=== PATIENT | female | born 1960 | race Caucasian/White ===

== ENCOUNTER 2022-05-03 09:53 | Outpatient (CLI) | payer MEDICARE, SELFPAY ==
--- NOTE | 2022-05-03 10:31 | USCV_ITS ---
Riri Espino Age: 62 Gender: F : 1960 Exam Date: 05/03/2022 10:57 Ordering Phys: Jo Oviedo Technologist: Amari Whitt [place] [facility] [place]: PAD Risk Factors: Previous Vascular Surgery: RIGHT LEFT BP: 133.0 / 80.00 BP: 148.0/ 90.00 0 0 Waveform Velocity (cm/s) Velocity (cm/s) Waveform Triphasic 139.3 Iliac Prox 90.2 Triphasic Triphasic 142.2 Iliac Mid 103.0 Triphasic Triphasic 125.1 Iliac Distal 144.5 Triphasic Triphasic 158.8 LIBRARY SERVICES COORDINATOR 97.9 Triphasic Triphasic 69.2 SFA Prox 80.3 Triphasic Monophasic 76.9 SFA Mid 365.5 Biphasic Monophasic SFA Dist Triphasic 44.7 86.3 Monophasic 25.6 POP 54.6 Biphasic Monophasic 16.8 AUTOMATIC WASHER MECHANIC 24.0 Biphasic Monophasic 11.2 DPA 23.0 Biphasic 0.7 DOYLE 0.7 FINDINGS Resting DOYLE 0.7 bilaterally. Moderate diffuse plaques were noted in the iliac and femoral arteries bilaterally. Markedly elevated velocity at the level of the mid SFA on the left side, with abnormal Doppler waveform CONCLUSIONS 1. Abnormal ABIs of 0.7 bilaterally, suggesting moderate peripheral artery disease. 2. Elevated Doppler velocity and waveform at the mid SFA on the left side, suggesting greater than 50% stenosis No similar previous studies are available for comparison Dr Geovanna Johnson MD [facility] (Electronically Signed) Final Date: 05 May 2022 13:38 S
== END 2022-05-03 09:54 | disposition home or self-care (01) ==
PROVIDERS: Visit Provider Family Medicine
DX: I70.202 Unspecified atherosclerosis of native arteries of extremities, left leg (principal)
CPT/HCPCS: 93925

== ENCOUNTER → 2023-09-10 14:30 | Outpatient (BNVA) | payer MEDICARE, MEDICAID, SELFPAY | PROVIDERS: PCP Nurse Practitioner Family; Visit Provider Specialist | DX: G56.03 Carpal tunnel syndrome, bilateral upper limbs (principal); G56.21 Lesion of ulnar nerve, right upper limb | CPT/HCPCS: 95910; 95911 ==

== ENCOUNTER → 2023-11-05 08:59 | Outpatient (BNVA) | payer MEDICARE, MEDICAID, SELFPAY | PROVIDERS: PCP Nurse Practitioner Family; Visit Provider Student in an Organized Health Care Education/Training Program | DX: G56.03 Carpal tunnel syndrome, bilateral upper limbs (principal); G56.21 Lesion of ulnar nerve, right upper limb | CPT/HCPCS: 73130; 99204 ==

== ENCOUNTER 2023-12-05 10:59 | Day surgery (SDC) | payer MEDICARE, MEDICAID, SELFPAY ==
[2023-12-05] VITALS (7 sets, daily range): BP systolic 97–155; BP diastolic 59–91; PULSE 57–73; RESP 16; TEMP 36.1–36.2; O2SAT 90–94
[2023-12-05] MEDS: sodium chloride 0.9% 1,000 ML 30 ML IV (11:46)
--- NOTE | 2023-12-05 11:46 | P.ANESASSM_ITS ---
Pre-Anesthetic Assessment Height/Weight: Height 5 ft Weight 175 lb Temp Pulse Resp BP Pulse Ox O2 Del Method 97 F L 71 16 155/84 94 Room Air 12/05/23 11:27 12/05/23 11:27 12/05/23 11:27 12/05/23 11:27 12/05/23 11:27 12/05/23 11:27 Preop Diagnosis: Carpal tunnel Operation Date: 12/05/23 13:00 Proposed Procedures p Carpal Tunnel Release(Right) - Kamaljit Magoffin, DO s Cubital Tunnel Release(Right) - Kamaljit Avel, DO s Ulnar Nerve Transposition(Right) - Kamaljit Magoffin, DO Was Beta Aman taken within 24 hours: N/A Was Clonidine taken within 24 hours: N/A Last intake: Intake Last Liquid Date 12/04/23 Last Liquid Time 21:00 Last Solid Date 12/04/23 Last Solid Time 19:00 Social Tobacco and No alcohol Exam alert, oriented x 3 and regular rate & rhythm decreased breath sounds bilaterally Airway Submandibular: within normal limits Cervical ROM: within normal limits Mallampati: Class III Dentition: other (few missing teeth) Anesthetic Plan ASA status: 3 Anesthesia: MAC and Regional (specify below) Other: No prior issues with anesthesia NPO since yesterday History of hypertension on metoprolol. BP this a.m. 155/84 Holter monitor 05/2023 showing sinus rhythm COPD, no inhalers Patient reportedly has claudication symptoms in lower extremities secondary to vascular stenosis. Needing vascular surgery in the future but has not had the procedures done yet Plan for MAC anesthesia with preop nerve block Medications/Allergies Home Medications Medication Instructions Recorded Confirmed Last Taken Type calcium 167 mg-vitamin D3 1.67 1 cap PO DAILY 11/05/23 12/04/23 12/04/23 History mcg-magnesium 83 mg capsule celecoxib 100 mg capsule (Celebrex) 100 mg PO BID 11/05/23 12/04/23 11/27/23 History cilostazol 100 mg tablet 100 mg PO BID 11/05/23 12/05/23 12/05/23 History metoprolol tartrate 50 mg tablet 50 mg PO DAILY 11/05/23 12/05/23 12/05/23 Histo ry simvastatin 10 mg tablet 10 mg PO DAILY 11/05/23 12/04/23 12/04/23 History Allergies Allergy/AdvReac Type Severity Reaction Status Date / Time metformin Allergy Intermediate Unknown Verified 11/05/23 09:03 [facility] Anesthesia Social History Smoking and tobacco/nicotine status: current every day tobacco/nicotine user Data Anesthesia Cardiac Studies: Cardiac Event Monitor 05/03/23
[2023-12-05] MEDS: acetaminophen 1,000 MG/100 ML PIGGYBACK 400 MG IV (11:50)
[2023-12-05] MEDS: ketorolac 30 mg/mL INJ IVP (11:51)
[2023-12-05 11:55] LABS: Glucose Point of Care 90 mg/dL (70-110)
--- NOTE | 2023-12-05 12:16 | PC.NURSE ---
pt placed on oxygen and heart monitors plus 2L nasal cannula in preparation for a superclavicular block for post surgery pain control. Time out was performed block was then performed using 30cc of 0.5% ropivicain. pt tolerated procedure well
--- NOTE | 2023-12-05 12:18 | ANES.PROC ---
Anesthesia Procedures Procedure/Date: 12/05/23 Nerve Block ^: Nerve Block 1: Main Anesthesia: other (100mcg fentanyl and 2mg versed) Time Out Performed: Yes Consent: requested by attending/covering physician and from patient Nerve block location: supraclavicular Anesthesia monitors applied: pulse oximetry, EKG, BP cuff and oxygen Nerve block position: supine Anesthetic Used: ropivicaine 0.5% Amount of anesthesia used (mL): 30 Ultrasound used to: recognize landmarks Interscalene/Femoral BLK: 4 stimuplex 21 g needle used for position and inplane approach and visualize local anesthetic spread Injection: neg aspiration of heme Patient Tolerated Procedure: well Complications: none Additional Comments: 4mg decadron added to block
--- NOTE | 2023-12-05 13:06 | W.PM.OPSUD ---
Surgery/Procedure H&P Update DATE OF PROCEDURE: December 05, 2023 DATE H&P PERFORMED: 11/05/23 H&P UPDATE INFORMATION: I have reviewed H&P completed within last 30 days, I have examined patient prior to procedure and No changes to prior documentation PREOP DIAGNOSIS: right carpal tunnel syndrome, right cubital tunnel syndrome PRIMARY INDICATION FOR PROCEDURE: right carpal tunnel syndrome, right cubital tunnel syndrome PLANNED PROCEDURE: Operation Date: 12/05/23 13:00 Proposed Procedures p Carpal Tunnel Release(Right) - DO aline Lin Cubital Tunnel Release(Right) - DO aline Lin Ulnar Nerve Transposition(Right) - Kamaljit Vallecillo DO
[2023-12-05] MEDS: ceFAZolin 2,000 MG in sodium chloride 0.9% (plus) 50 ML 100 MG IV (13:13)
--- NOTE | 2023-12-05 14:08 | P.BOP_ITS ---
Date of Procedure: 12/05/2023 Surgeon: Kamaljit Valelcillo DO Joint Sealer(s): None Procedure(s) performed: Right carpal tunnel release Right cubital tunnel release (ulnar nerve decompression at the elbow) Findings of the procedure(s): Patient was found to have right carpal tunnel syndrome right cubital tunnel syndrome underwent procedure as planned without issues or complications Estimated blood loss: 5 mL Specimen(s) removed: None Post-operative diagnosis: Right carpal tunnel syndrome, right cubital tunnel syndrome
--- NOTE | 2023-12-05 14:09 | P.OP_ITS ---
Operative Report Date of procedure: December 05, 2023 Surgeon: Kamaljit Vallecillo DO Procedure: Preoperative diagnosis: Right carpal tunnel syndrome, right cubital tunnel syndrome Postop Diagnosis: Same Procedure done: Right carpal tunnel release Right?cubital tunnel tunnel release (ulnar nerve decompression at elbow) Surgeon: Kamaljit Vallecillo DO Estimated blood loss: 5 mL Tourniquet? 13 minutes IV fluids: 1000 mL Complications: None Findings: See operative report narrative Condition: stable Disposition: same day Brief History: Patient's been seen and worked up in the outpatient setting and findings consistent with preoperative diagnosis.? Patient has right carpal tunnel syndrome as well as right?cubital tunnel syndrome which has been worked up in the outpatient setting has physical exam findings consistent with this as well as confirmatory nerve conduction/EMG nerve conduction study consistent with diagnosis.? Patient's failed conservative treatment.? As result through shared decision making agreed to proceed with? right carpal tunnel and right?cubital tunnel release we talked about treatment options as far as nonoperative and operative intervention.? Understands risk benefits complication alternatives surgical nonsurgical treatment options.? Understanding pt risks pt agrees to proceed with surgical intervention. Understanding these risks pt agrees to proceed with surgery.? Consent obtained. Procedure: Patient seen evaluate in the preoperative holding area.? Consent was reviewed and signed with patient.? Correct extremity marked.? Patient seen evaluated by anesthesia department once cleared for surgery was then taken back to the operative suite placed in supine position all bony prominences well-padded patient properly secured to bed.? right upper extremity placed onto armboard.? Nonsterile tourniquet applied right upper arm.? Patient then underwent anesthesia per the anesthesia department.? Patient's right upper extremity was then prepped and draped in standard orthopedic fashion.? Final timeout performed.? Patient received appropriate preoperative antibiotics. Esmarch was used exsanguinate the right upper extremity.? Tourniquet was insufflated to 250 mmHg. I started with the carpal tunnel release first.? I made a standard open carpal tunnel release starting with the distal most extent in the palm at the Hoff's cardinal line and the incision line was made in line with the fourth ray and ended just distal to the wrist crease.? Sharp scalpel incision was made through skin and subcutaneous tissue I then utilizing self retainer then began to diss ect with dissection scissors split longitudinally the palmar fascia.? Next I then utilizing my medical record assistant Moisésdaoneida retractors subsequently utilizing scalpel feathered through the palmaris brevis as well as through the transverse carpal ligament distally.? Once I encountered the floor of the transverse carpal ligament and entered into the carpal tunnel I then switched to dissection scissors.? Carefully released the distal extent of the transverse carpal ligament to the palmar fat.? Care was to protect the recurrent branch and not injured this during this part of the case.? Next I then placed a Hemphill underneath the transverse carpal ligament proximally to protect the nerve in the carpal tunnel contents.? And then I subsequently under loupe magnification utilize my dissection scissors to release the transverse carpal ligament into the antebrachial fascia under direct visualization with care to keep my scissors with a curved ulnarly away from the palmar cutaneous branch.? The transverse carpal was then completely decompressed proximally and a Hemphill was then placed both distally and proximally throughout the carpal tunnel and had complete decompression of the nerve.? The nerve did appear to have hourglass shape as it went through the carpal tunnel.? With significant irritation noted around the nerve.? No masses were noted within the contents of the carpal tunnel.? This completed the carpal tunnel release and then I subsequently irrigated the wound bed and placed a wet Ray-Rob into the incision for later closure. Next marked out the landmarks of the right elbow of the medial epicondyle and olecranon and made a curvilinear incision following the course of the ulnar nerve at the medial aspect of the elbow.? Sharp scalpel incision was made through skin and subcutaneous tissue.? Next I switched to Littler dissection scissors and spread in plane of the medial antebrachial cutaneous nerve branching which was protected throughout this part of the dissection.? Then I directly came down over the fascia and identified the 2 heads of the FCU fascia and split this right in the middle and subsequently identified my ulnar nerve distally.? This was then completely released distally under direct visualization and loupe magnification.? Once the nerve was then identified I then subsequently tracked this proximally and released this through Tanner's ligament as well as complete decompression of the nerve proximally all the way past the intermuscular septum.? The nerve was completely released and decompressed both proximally and distally.? Ulnar nerve neurolysis performed and completed both proximally and distally with dissection scissors.? I then took the elbow through range of motion and there was no instability or subluxating of the ulnar nerve.? This completed?cubital tunnel release.? ?Next the wound bed was thoroughly irrigated.? Tourniquet was deflated.? Hemostasis was satisfactory at the?cubital tunnel release surgery site. I then inspected the carpal tunnel incision and this was found to have satisfactory hemostasis and all this was maintained through bipolar electrocautery.? At this point time I sequentially closed?cubital tunnel site with 3-0 Vicryl suture in a running horizontal mattress nylon stitch.? ? The carpal tunnel release surgery was then closed in standard interrupted mattress fashion.? Dressing was Xeroform 4 x 4's ABD Curlex soft roll and an Nick wrap has a bulky soft dressing. Patient was then awakened from anesthesia and taken to PACU in stable condition. Disposition: Patient taken to PACU in stable condition recovering well.? Patient will receive appropriate discharge instructions as well as pain medication postoperatively.? We will follow-up with me in the office in 2 weeks.? Patient understands agrees with current plan.? All questions answered.? He understands if any questions or concerns and contact the office for follow-up appointment.
--- NOTE | 2023-12-05 15:10 | ANE.PACU2 ---
Inpatient post-anesthesia follow up: Airway intact: Yes Vital signs: Temperature 97.1 F Pulse Rate 57 Respiratory Rate 16 Blood Pressure 149/91 Pulse Oximetry 94 Oxygen Delivery Me thod Room Air Oxygen Flow Rate Fraction of Inspir ed Oxygen Hydration adequate: Yes Nausea and vomiting: No Pain level: 1 Mental status: Baseline
== END 2023-12-05 15:10 | disposition home or self-care (01) ==
PROVIDERS: PCP Nurse Practitioner Family; Visit Provider Student in an Organized Health Care Education/Training Program
PROC: (CPT 64721; principal; 2023-12-05 12:50)
PROC: (CPT 64718; 2023-12-05 12:50)
DX: G56.01 Carpal tunnel syndrome, right upper limb (principal); G56.21 Lesion of ulnar nerve, right upper limb; F17.200 Nicotine dependence, unspecified, uncomplicated
CPT/HCPCS: 64718; 64721; 36416; 82962; J0131; J0690; J1885; J2704; J7030

== ENCOUNTER → 2023-12-20 08:53 | Outpatient (BNVA) | payer MEDICARE, MEDICAID, SELFPAY | PROVIDERS: PCP Nurse Practitioner Family; Visit Provider Physician Assistant | DX: Z98.890 Other specified postprocedural states (principal) | CPT/HCPCS: 99024 ==

== ENCOUNTER → 2024-03-12 08:57 | Outpatient (BNVA) | payer MEDICAID, MEDICARE, SELFPAY | PROVIDERS: PCP Nurse Practitioner Family; Visit Provider Physician Assistant | DX: Z98.890 Other specified postprocedural states (principal) | CPT/HCPCS: 99024 ==

== ENCOUNTER → 2024-05-08 08:51 | Outpatient (BNVA) | payer MEDICARE, MEDICAID, SELFPAY | PROVIDERS: PCP Nurse Practitioner Family; Referring Provider Nurse Practitioner Family; Visit Provider Internal Medicine | DX: E11.9 Type 2 diabetes mellitus without complications (principal); E21.0 Primary hyperparathyroidism | CPT/HCPCS: 99204 ==

== ENCOUNTER 2024-06-23 11:41 | Outpatient (CLI) | payer OTHER, MEDICAID, SELFPAY ==
--- NOTE | 2024-06-23 11:54 | XR_ITS ---
WS: [email or web address] Exam: XR lumbar spine 2-3V* [id number] Date/Time of Exam: 06/23/2024 11:59 AM Reason For Exam: FOLLICULAR CYST OF THE SKIN No acute fracture. Degenerative vacuum disc at L5-S1. Mild spondylosis. Facet arthropathy at L4-5 and L5-S1. XR/XR lumbar spine 2-3V* [id number] IMPRESSION: 1. No fracture or malalignment. 2. Degenerative changes most marked at the L5-S1 level.
== END 2024-06-23 11:42 | disposition home or self-care (01) ==
PROVIDERS: PCP Nurse Practitioner Family; Visit Provider Nurse Practitioner Adult Health
DX: L72.9 Follicular cyst of the skin and subcutaneous tissue, unspecified (principal); M51.379 Other intervertebral disc degeneration, lumbosacral region without mention of lumbar back pain or lower extremity pain; M47.896 Other spondylosis, lumbar region; M47.897 Other spondylosis, lumbosacral region
CPT/HCPCS: 72100

== ENCOUNTER 2024-10-29 08:25 | Outpatient (CLI) | payer OTHER, MEDICAID, SELFPAY ==
--- NOTE | 2024-10-29 08:32 | XR_ITS ---
WS: [email or web address] Exam: XR KUB [id number] Date/Time of Exam: 10/29/2024 8:32 AM Reason For Exam: see below No bowel obstruction or free air. No sign of organ enlargement. Nonacute bowel gas pattern. Moderate amount of stool in the rectosigmoid and LEFT colon. Degenerative changes in the lumbar spine and hips. XR/XR KUB [id number] IMPRESSION: 1. No acute process identified. 2. Moderate amount of retained stool in the rectosigmoid and LEFT colon.
[2024-10-29 09:28] LABS: Alanine Aminotransferase 14 U/L (0-33); Albumin Level 4.0 g/dL (3.5-5.2); Alkaline Phosphatase 99 U/L (35-105); Anion Gap 15.2 (5-19); Aspartate Amino Transferase 16 U/L (0-32); Blood Urea Nitrogen 13 mg/dL (8-23); Calcium 10.1 mg/dL (8.5-10.5); Carbon Dioxide 27 mmol/L (22-29); Chloride 102 mmol/L (98-107); Globulin 3.1 g/dL (1.3-4.6); Glucose 116 mg/dL (65-115); Osmolality Calculated 291 mOsm/kg (285-295); Potassium 4.2 mmol/L (3.5-5.1); Sodium 140 mmol/L (136-145); Total Protein 7.1 g/dL (6.6-8.7)
[2024-10-29 10:26] LABS: Calcium 10.1 mg/dL (8.5-10.5)
== END 2024-10-29 08:26 | disposition home or self-care (01) ==
LOC: RAD 08:28
PROVIDERS: PCP Nurse Practitioner Family; Visit Provider Internal Medicine
DX: E21.0 Primary hyperparathyroidism (principal); E11.9 Type 2 diabetes mellitus without complications
CPT/HCPCS: 36415; 74018; 80053; 82306; 82310; 83970

== ENCOUNTER 2024-11-03 08:53 | Outpatient (CLI) | payer OTHER, MEDICAID, SELFPAY ==
[2024-11-03 12:54] LABS: Creatinine 24 Hour Urine 746.8 mg/dL (601-1689); Total Volume Urine 2575 ml
[2024-11-03 13:32] LABS: Calcium 24 Hour Urine 183 mg/24hr (100-300); Total Volume Urine 2575 ml; Urine Calcium Result 7.1 mg/dL
== END 2024-11-03 08:54 | disposition home or self-care (01) ==
PROVIDERS: PCP Nurse Practitioner Family; Visit Provider Internal Medicine
DX: E11.9 Type 2 diabetes mellitus without complications (principal); E21.0 Primary hyperparathyroidism
CPT/HCPCS: 82340; 82570

== ENCOUNTER → 2024-11-06 07:58 | Outpatient (BNVA) | payer OTHER, MEDICAID, SELFPAY | PROVIDERS: PCP Nurse Practitioner Family; Referring Provider Nurse Practitioner Family; Visit Provider Internal Medicine | DX: E21.0 Primary hyperparathyroidism (principal); E55.9 Vitamin D deficiency, unspecified; E83.52 Hypercalcemia | CPT/HCPCS: 99214 ==

== ENCOUNTER 2025-01-09 22:38 | Inpatient (IN) | payer MEDICARE, MEDICAID, SELFPAY ==
[2025-01-09 22:40] VITALS: BP 121/67; PULSE 70; RESP 17; TEMP 36.7; O2SAT 92; BMI 34.2
--- OUTSIDE RECORDS SUMMARY | 2025-01-09 22:43 | XMS_ITS | Clinical Summary ---
Author Organization [facility] Address [address] [place] [address] Phone Care Team Providers Care Tmd Teacher Name Role Phone Unavailable Primary Care Provider Unavailabl e Encounters Date Type Department Care Team Description 12/23/2024 External Device Data [facility] ABSTRACTION Provider, Abstract 12/22/2024 External Device Data [facility] ABSTRACTION Provider, Abstract 11/17/2024 External Device Data [facility] ABSTRACTION Provider, Abstract from Last 3 Months Social History Tobacco Use Types Packs/Day Years Used Date Smoking Tobacco: Never Assessed Comments Unknown Sex and Gender Information Value Date Recorded Sex Assigned at Not on file Legal Sex Female 3:58 PM CDT Gender Identity Not on file Sexual Orientation Not on file Plan of Treatment Health Maintenance Due Date Last Done Comments DTAP/TDAP/TD VACCINES (1 - Tdap) 1978 BREAST CANCER SCREENING 1999 COLORECTAL SCREENING 2004 Colorectal Cancer Screening 2004 FIT-DNA Q 3 years 2004 FIT/FOBT Q 1 year 2004 Flex Sig/CT Colonography Q 5 years 2004 PNEUMOCOCCAL VACCINE 50+ YEARS (1 of 1 - PCV) 04/12/19 10 ZOSTER VACCINE (1 of 2) 2009 OSTEOPOROSIS SCREENING 2024 INFLUENZA VACCINE (#1) 2024 RSV VACCINE (60+ or ) (1 - 1-dose 75+ series) 2034 Insurance [facility] DUAL COMPLETE HMO DSNP [facility] [id number]
--- NOTE | 2025-01-09 22:47 | ECG_ITS ---
[facility] 2025[facility]09 Pat Name: Riri Espino Department: Room: Gender: Female Player Services Representative: : 1960 Requested By: Cabrera Henriquez Order Number: [id number] Stevens MD: Geovanna Johnson M.D. Measurements Intervals [place] Rate: 69 P: 77 MA: 200 QRS: 63 QRSD: 85 T: 55 QT: 398 QTc: 427 Interpretive Statements SINUS RHYTHM No previous ECG available for comparison Electronically Signed On 01-10-2025 20:15:32 HELICOPTER OFFICER by Geovanna Johnson M.D. [email or web address]
--- NOTE | 2025-01-09 22:48 | XRR_ITS ---
PROCEDURE INFORMATION: Exam: XR Chest Exam date and time: 01/10/2025 1:39 AM Age: 64 years old Clinical indication: Chest pressure; C/O chest pain; Additional info: Cp TECHNIQUE: Imaging protocol: Radiologic exam of the chest. Views: 1 view. COMPARISON: CR XR KUB [id number] 10/29/2024 8:37 AM FINDINGS: Lungs: Unremarkable. No consolidation. Pleural spaces: Unremarkable. No pleural effusion. No pneumothorax. Heart/Mediastinum: Unremarkable. No cardiomegaly. Bones/joints: Unremarkable. XR/XR chest 1V portable [id number] IMPRESSION: No acute findings.
[2025-01-09 22:52] VITALS: BP 124/60; PULSE 68; O2SAT 94
[2025-01-09 23:22] LABS: Hematocrit 43.5 % (36-47); Hemoglobin 14.20 g/dL (11.27-16.99); Mean Corpuscular HGB Conc 32.6 g/dL (30-55); Mean Corpuscular Hemoglobin 31.2 pg (27-33); Mean Corpuscular Volume 95.6 fl (85-98); Nucleated Red Blood Cells % 0 %; Platelet Count 265 10^3/cmm (157-399); Red Blood Count 4.55 10^6/uL (3.85-5.65); White Blood Count 7.87 10^3/uL (3.29-11.43)
[2025-01-09 23:42] LABS: Troponin(5th) Baseline 21 ng/L (0-10)
[2025-01-09 23:43] LABS: Alanine Aminotransferase 15 U/L (0-33); Albumin Level 4.1 g/dL (3.5-5.2); Alkaline Phosphatase 82 U/L (35-105); Aspartate Amino Transferase 18 U/L (0-32); Blood Urea Nitrogen 14 mg/dL (8-23); Calcium 10.8 mg/dL (8.5-10.5); Carbon Dioxide 29 mmol/L (22-29); Chloride 101 mmol/L (98-107); Globulin 2.0 g/dL (1.3-4.6); Glucose 128 mg/dL (65-115); Osmolality Calculated 292 mOsm/kg (285-295); Sodium 140 mmol/L (136-145); Total Protein 6.1 g/dL (6.6-8.7)
[2025-01-09 23:46] LABS: Anion Gap 13.9 (5-19); Potassium 3.9 mmol/L (3.5-5.1)
[2025-01-10] VITALS (15 sets, daily range): BP systolic 104–158; BP diastolic 57–84; PULSE 62–91; RESP 15–23; TEMP 36.6–36.7; O2SAT 92–98; BMI 34.9
[2025-01-10 00:31] LABS: NT Pro B Type Natriuretic Pept 67 pg/mL (0-125)
[2025-01-10 01:31] LABS: Troponin 5 2HR 53.06 ng/L (0-10)
[2025-01-10 01:36] LABS: Troponin 5 2HR Delta 32.06 ABS# (0-10)
--- NOTE | 2025-01-10 02:07 | W.ED.CHESTPA ---
HPI - Chest Pain General: Chief Complaint: Chest Pain Stated Complaint: CP Time Seen by Provider: 01/10/25 01:52 History of Present Illness: Patient is a 64-year-old female presenting with chest pain and tightness. She reports that the pain is not as painful as it was previously but still feels kind of tight down the center. The patient notes that the chest pain radiated to her arms. She denies significant shortness of breath associated with the chest pain. She also reports experiencing episodes where her heart races, even with minimal exertion such as getting out of bed. A previous heart monitor test reportedly showed ventricular and supraventricular ectopic beats, described as rare. The patient has been experiencing chronic sneezing since July, for which she has tried multiple medications including azelastine, a steroid (name not recalled), Benadryl, and Claritin without significant relief. Related Data Home Medications ?Medication ?Instructions ?Recorded ?Confirmed calcium 167 mg-vitamin D3 1.67 1 cap PO DAILY 11/05/23 11/06/24 mcg-magnesium 83 mg capsule cilostazol 100 mg tablet 100 mg PO BID 11/05/23 11/06/24 metoprolol tartrate 50 mg tablet 50 mg PO DAILY 11/05/23 11/06/24 simvastatin 10 mg tablet 10 mg PO DAILY 11/05/23 11/06/24 aspirin 81 mg tablet 81 mg PO DAILY 05/08/24 11/06/24 Previous Rx's ?Medication ?Instructions ?Recorded cyclobenzaprine 10 mg tablet 10 mg PO TID #10 tabs 12/16/23 Allergies Allergy/AdvReac Type Severity Reaction Status Date / Time metformin Allergy Intermediate Unknown Verified 01/09/25 22:52 Review of Systems Narrative: Constitutional: No fever or chills mentioned Cardiovascular: Chest pain/tightness, pain radiating to arms, episodes of heart racing Respiratory: Denies significant shortness of breath with chest pain, chronic sneezing since July Gastrointestinal: Not addressed in this encounter Musculoskeletal: Arm pain associated with chest discomfort Neurological: Not addressed in this encounter Endocrine: History of diabetes mellitus Psychiatric: Not addressed in this encounter [facility] PFSH: Social History Smoking and tobacco/nicotine status: tobacco/nicotine user, details unknown Physical Exam Const: COMMON NORMALS: no acute distress GENERAL APPEARANCE: cooperative; not ill appearing and not frail appearing HENMT: COMMON NORMALS: normocephalic, atraumatic and Normal external nose present HEAD & SCALP: normocephalic and atraumatic FACE & SINUS: normal facial exam and face symmetric NOSE: Normal external nose present Eye: COMMON NORMALS: Equal, round and reactive pupils present and EOMs intact bilaterally PUPIL: Yes Equal, round and reactive pupils present Neck/C-Spine: GENERAL: Yes trachea midline Chest: CHEST: Yes Symmetrical chest wall rise Resp: COMMON NORMALS: normal respiratory effort, No retractions, No use of accessory muscles and clear to auscultation bilaterally AUSCULTATION: clear to auscultation bilaterally Cardio: COMMON NORMALS: regular rate and regular rhythm RATE: regular rate RHYTHM: regular rhythm GI: COMMON NORMALS: Normal to inspection, nondistended, normoactive bowel sounds present Extremity: COMMON NORMALS: no pedal edema Neuro: KATHARINA COMA SCALE: document GCS findings Thomson coma scale eye opening: Spontaneous Thomson coma scale verbal response: Orientated Thomson coma scale motor response: Obey commands Katharina coma scale total score: 15 SENSORY EXAM: Yes extremities (intact) Psych: COMMON NORMALS: speech normal SPEECH: Yes normal speech Skin: COMMON NORMALS: no rashes or lesions noted GENERAL SKIN EXAM: no rashes or lesions noted Course Vital Signs: Vital signs: Vital Signs Temperature 98.0 F 01/09/25 22:40 Pulse Rate 80 01/10/25 03:09 Respiratory Rate 17 01/09/25 22:40 Blood Pressure 146/66 01/10/25 03:09 Pulse Oximetry 94 01/10/25 03:09 Oxygen Delivery Me thod Room Air 01/10/25 03:09 MDM - Chest Pain Medical Decision Making . Acute Coronary Syndrome/NSTEMI: - Patient presenting with chest pain and elevated cardiac enzymes, suggesting myocardial injury - EKG and chest X-ray reported as normal - Plan: Admission to cardiac unit for further evaluation and management - Cardiology consultation - Initiate anticoagulation therapy in the interim She is essentially pain-free currently. Her vitals are stable. She is breathing room air. CBC is normal. BMP is normal. Chest x-ray nonacute. EKG shows no acute ST wave changes. However, her delta troponin at 2 hours is 32. She will receive 300 of Plavix, heparin drip, she received aspirin 324 mg in the ambulance en route to the hospital. She has topical nitroglycerin placed on her chest. She will go to [facility]. Hospitalist will see the patient. Will consult cardiology in the morning. Lab Data 01/09/25 23:12 01/09/25 23:12 Radiology Impressions Chest X-Ray 01/09/25 22:48 IMPRESSION: No acute findings. Laboratory Results WBC 7.87 10^3/uL (3.29-11.43) 01/09/25 23:12 RBC 4.55 10^6/uL (3.85-5.65) 01/09/25 23:12 Hgb 14.20 g/dL (11.27-16.99) 01/09/25 23:12 Hct 43.5 % (36-47) 01/09/25 23:12 MCV 95.6 fl (85-98) 01/09/25 23:12 MCH 31.2 pg (27-33) 01/09/25 23:12 MCHC 32.6 g/dL (30-55) 01/09/25 23:12 RDW 14.0 % (12.1-15.1) 01/09/25 23:12 Plt Count 265 10^3/cmm (157-399) 01/09/25 23:12 MPV 8.3 fL (7.4-10.4) 01/09/25 23:12 Neut % (Auto) 57.7 % 01/09/25 23:12 Lymph % (Auto) 30.9 % 01/09/25 23:12 [place] % (Auto) 8.5 % 01/09/25 23:12 Eos % (Auto) 2.5 % 01/09/25 23:12 Baso % (Auto) 0.1 % 01/09/25 23:12 Neut # (Auto) 4.54 10^3/uL (1.8-7.7) 01/09/25 23:12 Lymph # (Auto) 2.4 10^3/uL (0.8-4.8) 01/09/25 23:12 [place] # (Auto) 0.7 10^3/uL (0.2-0.9) 01/09/25 23:12 Eos # (Auto) 0.2 10^3/uL (0.0-0.8) 01/09/25 23:12 Baso # (Auto) 0.0 10^3/uL (0.0-0.1) 01/09/25 23:12 Nucleated RBC % (auto) 0 % 01/09/25 23:12 Nucleated RBCs # 0.0 /100WBC 01/09/25 23:12 Sodium 140 mmol/L (136-145) 01/09/25 23:12 Potassium 3.9 mmol/L (3.5-5.1) 01/09/25 23:12 Chloride 101 mmol/L (98-107) 01/09/25 23:12 Carbon Dioxide 29 mmol/L (22-29) 01/09/25 23:12 Anion Gap 13.9 (5-19) 01/09/25 23:12 BUN 14 mg/dL (8-23) 01/09/25 23:12 Creatinine 0.7 mg/dL (0.5-0.9) 01/09/25 23:12 GFR Calculation 84.0 mL/min (90-130) L 01/09/25 23:12 Glucose 128 mg/dL (65-115) H 01/09/25 23:12 Calculated Osmolality 292 mOsm/kg (285-295) 01/09/25 23:12 Calcium 10.8 mg/dL (8.5-10.5) H 01/09/25 23:12 Total Bilirubin 0.2 mg/dL (0.15-1.2) 01/09/25 23:12 AST 18 U/L (0-32) 01/09/25 23:12 ALT 15 U/L (0-33) 01/09/25 23:12 Alkaline Phosphatase 82 U/L (35-105) 01/09/25 23:12 Troponin T Baseline 21 ng/L (0-10) H 01/09/25 23:12 Troponin T 120 Minute 53.06 ng/L (0-10) H 01/10/25 01:07 Delta Troponin T 32.06 ABS# (0-10) H* 01/10/25 01:07 NT-Pro-B Natriuret Pep 67 pg/mL (0-125) 01/09/25 23:12 Total Protein 6.1 g/dL (6.6-8.7) L 01/09/25 23:12 Albumin 4.1 g/dL (3.5-5.2) 01/09/25 23:12 Globulin 2.0 g/dL (1.3-4.6) 01/09/25 23:12 All radiology interpretation(s) finalized by discharge Critical Care Time Critical Care Time: Critical Care Time: Yes Total Critical Care Time: 40 Attestation: This case had a high probability of a clinically significant, sudden, or life threatening deterioration of this patient's condition which required my full and direct attention, intervention and personal management. Time is independent of any procedures performed. Discharge Plan Discharge Patient Disposition: Admitted As Inpatient Admit Provider: Isis Hart Clinical Impression: Non-ST elevated myocardial infarction (non-STEMI) Condition: Fair Coding Level of Care Code ED Time Study Engineer for Chg Fwd Heart Score HEART Score Components History: Moderately Suspicious EKG: Normal Age: 65 or more yrs Risk Factors: >/=3 Risk Factors Troponin: Baseline Trop 16-45 ng/L HEART Score RESULT HEART Score: 6
[2025-01-10] MEDS: heparin drip 25,000 UNIT/500 ML PREMIX 22.23 UNIT IV (02:55)
--- NOTE | 2025-01-10 04:01 | PM.HP ---
Providers/Chief Complaint Admitting Physician: Isis Hart MD Primary Care Provider: AQUILES Dumont Chief Complaint: CP History of Present Illness As per the previous note and the patient Riri Espino is a 64 year old female with past medical history of hypertension, DM but not taking any medications, COPD and active smoker but not on inhalers, came with chest pain that was more of a chest pressure and tightness started today. There was also radiation to her both arms. Patient did not report any diaphoresis, syncope or presyncope, no shortness of breath, or orthopnea or PND. She has baseline leg swellings which gets worse on and off. And reported it has been worsening lately from the last 2 to 3 days. There was no history of fevers, abdominal pain, nausea vomiting or diarrhea. Patient reported that she has been diagnosed previously with SVT and is on metoprolol 50 mg twice daily. She is also having some nasal congestive features and therefore takes Flonase and antiallergic medication but does not relieve her much. During her workup in the ER it was found to have significant increased troponins without significant ST segment changes on EKG and was started on heparin infusion for NSTEMI Review of Systems General: Reports: 10 or more systems reviewed and unremarkable except in HPI and below Medications/Allergies Home Medications ?Medication ?Instructions ?Recorded ?Confirmed ?Last Taken ?Type calcium 167 mg-vitamin D3 1.67 1 cap PO DAILY 11/05/23 01/10/25 1 Day Ago History mcg-magnesium 83 mg capsule ~01/09/25 cilostazol 100 mg tablet 100 mg PO BID 11/05/23 01/10/25 1 Day Ago History ~01/09/25 metoprolol tartrate 50 mg tablet 50 mg PO BID 11/05/23 01/10/25 1 Day Ago History ~01/09/25 simvastatin 10 mg tablet 10 mg PO DAILY 11/05/23 01/10/25 1 Day Ago History ~01/09/25 aspirin 81 mg tablet 81 mg PO DAILY 05/08/24 01/10/25 1 Day Ago History ~01/09/25 calcium 600 mg capsule 600 mg PO DIRECTED 01/10/25 01/10/25 01/09/25 History cholecalciferol (vitamin D3) 50 50 mcg PO DAILY 01/10/25 01/10/25 1 Day Ago History mcg (2,000 unit) tablet (Vitamin ~01/09/25 D3) cyclobenzaprine 10 mg tablet 10 mg PO PRN 01/10/25 01/10/25 Unknown History Allergies Allergy/AdvReac Type Severity Reaction Status Date / Time metformin Allergy Intermediate Unknown Verified 01/09/25 22:52 PFSH Acute PFSH: Social History Smoking and tobacco/nicotine status: tobacco/nicotine user, details unknown Vitals/I&O/Wt Last Vital Signs Temp 98.0 F 01/09/25 22:40 Pulse 80 01/10/25 03:09 Resp 17 01/09/25 22:40 BP 146/66 01/10/25 03:09 Pulse Ox 94 01/10/25 03:09 O2 Del Method Room Air 01/10/25 03:09 Weight last 48 hrs Weight 79.379 kg Physical Exam Narrative: General: Alert and oriented, lying comfortably without any distress HEENT: Normocephalic, atraumatic, grossly unremarkable exam Cardio: normal rate rhythm, normal S1-S2 without any murmurs, rubs, or gallops and JVD normal Respiratory: normal vascular breathing on auscultation without any wheezes, stridor, rhonchi GI: Abdomen soft, nontender, nondistended, normoactive bowel sounds present all 4 quadrants, Neuro: intact cranial nerves motor and sensory and cerebellar/coordination function without any focal neurological deficit Behavior: Appropriate and cooperative Extremities: Adequate palpable pulses, mild trace edema Data 01/09/25 23:12 01/09/25 23:12 A&P Assessment and plan 1. Non-ST elevated myocardial infarction (non-STEMI): - Patient was loaded with aspirin and clopidogrel in the ER - Continue aspirin and high-dose statins. - Heparin infusion and to consult cardiology for further intervention - Echo - TSH, lipid panel, HbA1c - Telemetry monitoring - Monitor electrolytes and correction accordingly - Maintain normal hemodynamics 2. Status post carpal tunnel release: - Avoid any and seeds like ketorolac Toradol or Motrin considering patient has NSTEMI - Tylenol or morphine or opiates as needed for pain control 3. Ulnar neuropathy at elbow of right upper extremity: As mentioned above PDMP PDMP Reviewed: Not Reviewed Attestations Medical Necessity Statement*: Patient will stay more than 2 midnights for the management of NSTEMI Time Spent in Patient Care: 16 - 35 minutes (>than 50% of time spent in counselling and/or direct pt care on unit). Other Attestations: Patient condition has been discussed at length with the patient/family, I have independently reviewed the chart labs imaging/diagnostics/EKG. the goals of care and code status with the patient/family/NOK/legal bilingual call center representative, and documented accordingly. The management has been done according to the current clinical condition with respect to patient goals of care and based on recommendations/guidelines. The patient/family has been informed about the current condition and further plan of care. Agreed with the plan of care and understood without any language barrier. Every effort was made to ensure accuracy of tankage supervisor. Any obvious errors or omissions should be clarified with the author of the document. Coding Level of Care Code Acute Code for Chg Fwd Diagnoses Non-ST elevated myocardial infarction (non-STEMI) I21.4 Status post carpal tunnel release Z98.890 Ulnar neuropathy at elbow of right upper extremity G56.21
--- NOTE | 2025-01-10 04:09 | ECG_ITS ---
[facility] Date: 2025-01-10 Pat Name: Riri Espino Department: Room: 103 Gender: Female Senior Principal: : 1960 Requested By: Isis Hart Order Number: [id number] Hilda MD: Geovanna Johnson M.D. Measurements Intervals [place] Rate: 68 P: 71 DE: 201 QRS: 48 QRSD: 84 T: 56 QT: 413 QTc: 440 Interpretive Statements SINUS RHYTHM LOW QRS VOLTAGE IN PRECORDIAL LEADS [QRS DEFLECTION < 1.0 mV IN CHEST LEADS] Compared to ECG 01/09/2025 22:47:18 Low QRS voltage now present Electronically Signed On 01-10-2025 20:14:56 DOG FOOD DOUGH MIXER by Geovanna Johnson M.D. [id number] [id number]
--- NOTE | 2025-01-10 04:46 | PC.NURSE ---
Per patient request aure Bateman was notified of admission. All questions answered.
[2025-01-10 05:24] LABS: Hematocrit 42.3 % (36-47); Hemoglobin 13.80 g/dL (11.27-16.99); Mean Corpuscular HGB Conc 32.6 g/dL (30-55); Mean Corpuscular Hemoglobin 31.1 pg (27-33); Mean Corpuscular Volume 95.3 fl (85-98); Nucleated Red Blood Cells % 0 %; Platelet Count 264 10^3/cmm (157-399); Red Blood Count 4.44 10^6/uL (3.85-5.65); White Blood Count 6.19 10^3/uL (3.29-11.43)
[2025-01-10 05:37] LABS: Estmated Average Glucose 134; Hemoglobin A1C 6.3 % (4.0-6.0)
[2025-01-10 05:52] LABS: Troponin 5 6HR 45.55 ng/L (0-10)
[2025-01-10 05:53] LABS: Cholesterol 141 mg/dL (0-200); HDL Cholesterol 48 mg/dL (60-100); Magnesium 2.0 mg/dL (1.7-2.3); Thyroid Stimulating Hormone 1.79 uIU/mL (0.27-4.20); Triglycerides 46 mg/dL (0-150)
[2025-01-10 06:04] LABS: Troponin 5 6HR Delta 24.55 ng/L (0-12)
--- NOTE | 2025-01-10 06:11 | ECG_ITS ---
[facility] Test Date: 2025-01-10 Pat Name: Riri Espino Department: Room: 103 Gender: Female Track Manager: : 1960 Requested By: Isis Hart Order Number: [id number] Hilda MD: Geovanna Johnson M.D. Measurements Intervals [place] Rate: 69 P: 265 AR: 192 QRS: -27 QRSD: 81 T: -57 QT: 409 QTc: 439 Interpretive Statements ECTOPIC ATRIAL RHYTHM POSSIBLE LEFT ATRIAL ENLARGEMENT [-0.1mV P-WAVE IN V1/V2] INDETERMINATE AXIS LOW QRS VOLTAGE IN PRECORDIAL LEADS [QRS DEFLECTION < 1.0 mV IN CHEST LEADS] PROBABLE INFERIOR MYOCARDIAL INFARCTION , OF INDETERMINATE AGE [35 ms Q WAVE IN II/aVF] Compared to ECG 01/10/2025 04:51:34 Ectopic atrial rhythm now present Indeterminate axis now present Myocardial infarct finding now present Sinus rhythm no longer present Electronically Signed On 01-10-2025 20:19:10 SECURITY ASSURANCE SPECIALIST by Geovanna Johnson M.D. [id number]
--- NOTE | 2025-01-10 06:16 | PC.NURSE ---
Patient is sneezing nonstop complaining that it hurts my ears all the way down into my arms and chest . Notified Dr. olmos and received orders for benadryl 25 mg PRN and flonase.
[2025-01-10] MEDS: morphine 4 mg/mL SDV 1 mL 2 MG IVP ×3 (06:45→18:02)
[2025-01-10] MEDS: pantoprazole 40 mg SDV IVP (06:45)
[2025-01-10] MEDS: alum-mag-hydroxide-sime 30 mL UDC 15 ML PO (07:31)
[2025-01-10] MEDS: fluticasone nasal spray 16gm Btl 1 SPRAY NASAL (07:36)
[2025-01-10 10:01] LABS: Partial Thromboplastin Time 88.2 SECONDS (23.9-36.7)
--- NOTE | 2025-01-10 10:15 | ECG_ITS ---
[facility] Date: 2025-01-10 Pat Name: Riri Espino Department: Room: 103 Gender: Female Green Pipefitter: : 1960 Requested By: Ofelia Palacios Order Number: [id number] Hilda MD: Geovanna Johnson M.D. Measurements Intervals [place] Rate: 60 P: 65 MS: 165 QRS: 51 QRSD: 89 T: 37 QT: 427 QTc: 429 Interpretive Statements SINUS RHYTHM MINIMAL ST DEPRESSION [0.025+ mV ST DEPRESSION] Compared to ECG 01/10/2025 06:11:14 ST (T wave) deviation now present Ectopic atrial rhythm no longer present Indeterminate axis no longer present Myocardial infarct finding no longer present Electronically Signed On 01-10-2025 20:11:04 WARD NURSE by Geovanna Johnson M.D. [email or web address]
[2025-01-10] MEDS: HYDROcodone-acetaminophen 5-325 mg Tablet 1 TAB PO ×2 (10:19→21:09)
--- NOTE | 2025-01-10 10:21 | PC.NURSE ---
Patient c/o persistent chest pain at varying degrees. Informed Dr Palacios. Placed order for EKG and administered hydrocodone as ordered and documented.
--- NOTE | 2025-01-10 12:12 | USCV_ITS ---
Riri Espino Age: 64 Gender: F : 1960 Exam Date: 01/10/2025 16:10 Ordering Phys: Ofelia Palacios MD Technologist: Amari Whitt Exam Location: [facility] [place] Indication: nstemi BP: 158 / 76 HR: 75 Rhythm: Sinus Technical Quality: Adequate MEASUREMENTS (Male / Female) Normal Values 2D ECHO LV Diastolic Diameter PLAX 3.6 cm 4.2 - 5.9 / 3.9 - 5.3 cm IVS Diastolic Thickness 0.8 cm 0.6 - 1.0 / 0.6 - 0.9 cm IVS Systolic Thickness 1.4 cm LVPW Diastolic Thickness 0.6 cm 0.6 - 1.0 / 0.6 - 0.9 cm LVPW Systolic Thickness 1.1 cm LVOT Diameter 2.0 cm LV Ejection Fraction 2D Teich 75.5 % LV Ejection Fraction MOD 4C 73.2 % LV Ejection Fraction MOD 2C 71.9 % LV Ejection Fraction 2C AL 72.3 % LA Diameter 3.1 cm RA Systolic Volume 4C AL 16.2 ml RA Systolic Volume 4C MOD 15.7 ml LA Sys Volume AL 41.3 cm cubed LA Sys Volume Index AL 21.8 cm cubed/m squared Aorta at Sinotubular Diameter 2.5 cm IVC Diameter 1.7 cm M-MODE LA Ao Ratio MM 1.2 MV E Point Septal Separation 0.4 cm AV Cusp Separation MM 1.5 cm DOPPLER LVOT Peak Velocity 137.0 cm/s AV Area Cont Eq vti 2.8 cm squared AV Area Cont Eq pk 2.9 cm squared MV Peak Velocity 131.0 cm/s MV Area PHT 4.5 cm squared Mitral E to A Ratio 1.1 TR Peak Velocity 296.0 cm/s TR Peak Gradient 35.0 mmHg TR Mean Velocity 237.0 cm/s TR Mean Gradient 23.2 mmHg TR Velocity Time Integral 63.2 cm RV Ejection Time 0.2 s FINDINGS Left Ventricle Normal left ventricular size and systolic function, EF 72%.no regional wall motion abnormalities. Right Ventricle Normal right ventricular size and systolic function. Right Atrium Normal right atrial size. Left Atrium Normal left atrial size. IA Septum Normal appearance of the interatrial septum. Mitral Valve Mild mitral annular calcification. Aortic Valve No gross abnormalities noted Tricuspid Valve Trace tricuspid valve regurgitation. Estimated pulmonary artery peak systolic pressure 27 mmHg Pulmonic Valve Pulmonic valve not well visualized. Pericardium No pericardial effusion. Aorta Normal aortic annulus size. IVC Normal inferior vena cava. CONCLUSIONS Normal left ventricular size and systolic function, EF 72%.no regional wall motion abnormalities. Trace tricuspid valve regurgitation. Estimated pulmonary artery peak systolic pressure 27 mmHg. There is no pericardial effusion. There are no intracardiac masses. No similar previous studies are available for comparison Dr Geovanna Johnson MD [facility] (Electronically Signed) Final Date: 10 January 2025 17:18 S
[2025-01-10] MEDS: nitroglycerin 1 gm/inch oint Pkt 1 INCH TOPICAL (13:00)
--- NOTE | 2025-01-10 14:35 | PM.CONSULT ---
Providers/Reason For Consult Consulting Physician/Specialty*: MANISH Johnson MD/cardiology Reason for Consult*: Patient with chest pain and elevated troponin T Requesting Physician: Dr Maritza Palacios Attending Physician: Ofelia Palacios MD Primary Care Provider: AQUILES Dumont History of Present Illness History of Present Illness Riri Espino is a 64 year old female with a history of hypertension, COPD aND dyslipidemia is presenting with chest pain. Cardiology consult is requested for further cardiac evaluation recommendations This patient with a history of high blood pressure, diabetes, dyslipidemia, COPD and peripheral arterial disease, apparently has been in her baseline state of health up until yesterday evening when while she was getting ready to go to bed, started having chest pain which radiated to both arms, to the neck and also to the back. She had associated shortness of breath. The intensity of the pain was moderate to severe. Pain might have lasted for an hour or so. It gradually started subsiding. Patient was found to have an elevated troponin T with a 2-hour delta of around 25. She received aspirin, Plavix and topical nitrates in the emergency room. She is admitted to the hospital for further evaluation and management According the patient, she still has some discomfort in the chest but most of the pain is gone. She has no other associated symptoms. No fever, chills or cough. This patient has no previous history for any coronary disease, myocardial infarction or congestive heart failure. She has a history of aortofemoral bypass surgery in 2006, here in this hospital. The details are not available. She had an arterial Doppler examination in 2022 and was found to have an DOYLE of 0.7 bilaterally. This patient has a history of smoking abuse, smokes a pack a day for the last 50 years or so. No alcohol abuse or any other substance abuse Her mother had? Cardiomyopathy and defibrillator placement at a very young age?. Her maternal and was recommended for cardiac transplant. Details are not available. Review of Systems Narrative: CONSTITUTIONAL: No fever or chills. EYES: No blurring of vision or other visual disturbances lately. ENT: No hoarseness of voice, auditory disturbances or sore throat. CARDIOVASCULAR: As mentioned above. RESPIRATORY: No significant cough. GASTROINTESTINAL: No hematemesis or melena. GENITOURINARY: No dysuria or hematuria. INTEGUMENTARY: No skin rashes or history of skin cancer. NEURO: No transient ischemic attacks or amaurosis. PSYCHIATRIC: No history of psychosis or major depression. HEMATOLOGIC: No bleeding disorders or significant anemia. ENDOCRINE: History of diabetes MUSCULOSKELETAL: No recent joint pain or swelling. ALLERGY/IMMUNOLOGY: As mentioned above. Medications/Allergies Home Medications ?Medication ?Instructions ?Recorded ?Confirmed ?Last Taken ?Type calcium 167 mg-vitamin D3 1.67 1 cap PO DAILY 11/05/23 01/10/25 1 Day Ago History mcg-magnesium 83 mg capsule ~01/09/25 cilostazol 100 mg tablet 100 mg PO BID 11/05/23 01/10/25 1 Day Ago History ~01/09/25 metoprolol tartrate 50 mg tablet 50 mg PO BID 11/05/23 01/10/25 1 Day Ago History ~01/09/25 simvastatin 10 mg tablet 10 mg PO DAILY 11/05/23 01/10/25 1 Day Ago History ~01/09/25 aspirin 81 mg tablet 81 mg PO DAILY 05/08/24 01/10/25 1 Day Ago History ~01/09/25 calcium 600 mg capsule 600 mg PO DIRECTED 01/10/25 01/10/25 01/09/25 History cholecalciferol (vitamin D3) 50 50 mcg PO DAILY 01/10/25 01/10/25 1 Day Ago History mcg (2,000 unit) tablet (Vitamin ~01/09/25 D3) cyclobenzaprine 10 mg tablet 10 mg PO PRN 01/10/25 01/10/25 Unknown History Allergies Allergy/AdvReac Type Severity Reaction Status Date / Time metformin Allergy Intermediate Unknown Verified 01/09/25 22:52 Current Medications Generic Name Dose Route Start Last Admin Trade Name Willie PRN Reason Stop Dose Admin Hydrocodone Bitart/Acetaminophen 1 tab 01/10/25 02:09 01/10/25 10:19 Hydrocodone-Acetaminophen 5-325 Mg Tablet PO 1 tab Q4H PRN Administration MODERATE TO SEVERE PAIN Al Hydrox/Mg Hydrox/Simethicone 15 ml 01/10/25 02:09 01/10/25 07:31 Wiqr-Qlz-Tigusjgdg-Zenia 30 Ml Udc PO 15 ml Q6H PRN Administration INDIGESTION Atorvastatin Calcium 80 mg 01/10/25 06:00 01/10/25 06:45 Atorvastatin 40 Mg Tablet PO 80 mg BEDTIME STERLING Administration Diphenhydramine HCl 25 mg 01/10/25 05:47 01/10/25 06:00 Diphenhydramine 25 Mg Capsule PO 25 mg Q6H PRN Administration ITCHING Fluticasone Propionate 1 spray 01/10/25 07:30 01/10/25 07:36 Fluticasone Nasal Imboden 16gm Btl NASAL 1 spray BID STERLING Administration Heparin Sodium/Sodium Chloride 25,000 unit in 500 mls @ 0 mls/hr 01/10/25 02:30 01/10/25 10:06 Heparin Drip IV 11.97 unit/kg/hr CONT STERLING 19 mls/hr Protocol Titration Per Protocol Morphine Sulfate 2 mg 01/10/25 02:09 01/10/25 11:52 Morphine 4 Mg/Ml Sdv 1 Ml IVP 2 mg Q4H PRN Administration SEVERE PAIN Nitroglycerin 1 inch 01/10/25 12:15 01/10/25 13:00 Nitroglycerin 1 Gm/Inch Oint Pkt TOPICAL 1 inch Q6H STERLING Administration Pantoprazole Sodium 40 mg 01/10/25 06:00 01/10/25 06:45 Pantoprazole 40 Mg Sdv IVP 40 mg DAILY STERLING Administration PFSH Acute PFSH: Social History Smoking and tobacco/nicotine status: tobacco/nicotine user, details unknown Vitals/I&O/Wt Last Vital Signs Temp 98.0 F 01/10/25 08:00 Pulse 72 01/10/25 13:00 Resp 23 H 01/10/25 12:00 BP 158/79 01/10/25 13:00 Pulse Ox 98 01/10/25 12:00 O2 Del Method Nasal Cannula 01/10/25 08:40 O2 Flow Rate 2 01/10/25 08:40 01/09/25 01/10/25 01/10/25 22:59 06:59 14:59 Intake Total 774.685 / 774.685 Balance 774.685 / 774.685 Weight last 48 hrs Weight 179 lb 0.246 oz Weight 179 lb 0.246 oz Weight 175 lb Physical Exam Narrative: GENERAL: The patient is alert and oriented times three. Not in any acute distress. HEENT: No significant pallor, icterus or lymphadenopathy.Oral cavity: There are no mucous membrane lesions. NECK: Trachea appears to be central. No masses noted. No JVD or thyromegaly appreciated. RESPIRATORY: Chest is symmetrical. No intercostals muscle retraction or any accessory muscle activation. There is no chest wall tenderness. Breath sounds are heard bilaterally. No rales or rhonchi heard. No evidence of any consolidation. BREASTS: Deferred. HEART: The heart sounds are normal. No S3 or S4. No significant murmurs. No pericardial rub ABDOMEN: No vessel pulsations or distention. No tenderness. No organomegaly appreciated. Bowel sounds are normally heard. : Deferred. RECTAL: Deferred. LYMPHATIC: No lymphadenopathy noted in the neck. EXTREMITIES: No edema or cyanosis. No clubbing. Peripheral pulses are weak bilaterally MUSCULOSKELETAL: No acute joint deformities or swelling SKIN: There are no significant rashes or ecchymosis NEUROPSYCHIATRIC: The patient is alert and oriented x3. Appears to be in a good mood. No tremors or rigidity noted. Data 01/10/25 05:02 01/09/25 23:12 Other Labs: Laboratory Last Values WBC 6.19 10^3/uL (3.29-11.43) 01/10/25 05:02 RBC 4.44 10^6/uL (3.85-5.65) 01/10/25 05:02 Hgb 13.80 g/dL (11.27-16.99) 01/10/25 05:02 Hct 42.3 % (36-47) 01/10/25 05:02 MCV 95.3 fl (85-98) 01/10/25 05:02 MCH 31.1 pg (27-33) 01/10/25 05:02 MCHC 32.6 g/dL (30-55) 01/10/25 05:02 RDW 13.8 % (12.1-15.1) 01/10/25 05:02 Plt Count 264 10^3/cmm (157-399) 01/10/25 05:02 MPV 8.5 fL (7.4-10.4) 01/10/25 05:02 Neut % (Auto) 53.9 % 01/10/25 05:02 Lymph % (Auto) 35.1 % 01/10/25 05:02 [facility] [place] [facility] % (Auto) 8.6 % 01/10/25 05:02 Eos % (Auto) 1.9 % 01/10/25 05:02 Baso % (Auto) 0.3 % 01/10/25 05:02 Neut # (Auto) 3.34 10^3/uL (1.8-7.7) 01/10/25 05:02 Lymph # (Auto) 2.2 10^3/uL (0.8-4.8) 01/10/25 05:02 [facility] # (Auto) 0.5 10^3/uL (0.2-0.9) 01/10/25 05:02 Eos # (Auto) 0.1 10^3/uL (0.0-0.8) 01/10/25 05:02 Baso # (Auto) 0.0 10^3/uL (0.0-0.1) 01/10/25 05:02 Nucleated RBC % (auto) 0 % 01/10/25 05:02 Nucleated RBCs # 0.0 /100WBC 01/10/25 05:02 APTT 88.2 SECONDS (23.9-36.7) H 01/10/25 09:22 D-Dimer 0.69 ug/mLFEU (0-0.59) H 01/10/25 09:22 Sodium 140 mmol/L (136-145) 01/09/25 23:12 Potassium 3.9 mmol/L (3.5-5.1) 01/09/25 23:12 Chloride 101 mmol/L (98-107) 01/09/25 23:12 Carbon Dioxide 29 mmol/L (22-29) 01/09/25 23:12 Anion Gap 13.9 (5-19) 01/09/25 23:12 BUN 14 mg/dL (8-23) 01/09/25 23:12 Creatinine 0.7 mg/dL (0.5-0.9) 01/09/25 23:12 GFR Calculation 84.0 mL/min (90-130) L 01/09/25 23:12 Glucose 128 mg/dL (65-115) H 01/09/25 23:12 Estimat Average Glucose 134 01/10/25 05:02 Hemoglobin A1c 6.3 % (4.0-6.0) H 01/10/25 05:02 Calculated Osmolality 292 mOsm/kg (285-295) 01/09/25 23:12 Calcium 10.8 mg/dL (8.5-10.5) H 01/09/25 23:12 Phosphorus 3.5 mg/dL (2.5-4.5) 01/10/25 05:02 Magnesium 2.0 mg/dL (1.7-2.3) 01/10/25 05:02 Total Bilirubin 0.2 mg/dL (0.15-1.2) 01/09/25 23:12 AST 18 U/L (0-32) 01/09/25 23:12 ALT 15 U/L (0-33) 01/09/25 23:12 Alkaline Phosphatase 82 U/L (35-105) 01/09/25 23:12 Troponin T Baseline 21 ng/L (0-10) H 01/09/25 23:12 Troponin T 120 Minute 53.06 ng/L (0-10) H 01/10/25 01:07 Delta Troponin T 32.06 ABS# (0-10) H* 01/10/25 01:07 Troponin T Hi Sens 6Hr 45.55 ng/L (0-10) H 01/10/25 05:02 Troponin T Hi Sens 6Hr Delta 24.55 ng/L (0-12) H* 01/10/25 05:02 NT-Pro-B Natriuret Pep 67 pg/mL (0-125) 01/09/25 23:12 Total Protein 6.1 g/dL (6.6-8.7) L 01/09/25 23:12 Albumin 4.1 g/dL (3.5-5.2) 01/09/25 23:12 Globulin 2.0 g/dL (1.3-4.6) 01/09/25 23:12 Triglycerides 46 mg/dL (0-150) 01/10/25 05:02 Cholesterol 141 mg/dL (0-200) 01/10/25 05:02 LDL Cholesterol, Calc 84 mg/dL (50-129) 01/10/25 05:02 HDL Cholesterol 48 mg/dL (60-100) L 01/10/25 05:02 LDL/HDL Ratio 1.75 RATIO (0.00-3.22) 01/10/25 05:02 Cholesterol/HDL Ratio 2.94 mg/dL (0.0-4.40) 01/10/25 05:02 TSH 1.79 uIU/mL (0.27-4.20) 01/10/25 05:02 Other data: The EKG showed a normal sinus rhythm with some nonspecific ST changes in the inferolateral leads A&P Assessment and plan 1. Chest pain, unspecified type: The patient's symptoms and clinical features are consistent with acute coronary syndrome with a non-ST elevation myocardial infarction. Currently she seems to be fairly stable from a hemodynamic standpoint. Her EKG changes are nonspecific 2. Elevated troponin: As mentioned above. Patient has full clinical features of a non-ST elevation myocardial infarction. She need to be treated with subcu Lovenox, p.o. aspirin, Plavix, beta-arnoldo, statin, nitrates and other symptomatic measures. 3. Benign hypertension: The antihypertensive medications need to be optimized. I may increase the dose of the night to paste to 2 inch every 6 hours. Metoprolol 25 mg p.o. twice daily 4. Dyslipidemia: Agree with the higher dose of statin. 5. S/P aortobifemoral bypass surgery: Patient currently asymptomatic. 6. Peripheral arterial disease: Patient had an arterial Doppler examination 2 years ago and was found to have an DOYLE of 0.7 bilaterally 7. Type 2 diabetes mellitus without complication, without long-term current use of insulin: Patient is on dietary modification. This may be continued. 8. Smoking addiction: Patient strongly advised to quit smoking Plan: I may go ahead and do an arterial duplex examination of the lower extremity to further evaluate the peripheral artery disease. Serial cardiac enzymes and EKGs In order to further evaluate the patient's her coronary status, she requires a cardiac catheterization. The risks and benefits of the procedure were discussed with the patient The risk of bleeding, hematoma, vascular injury, myocardial infarction, myocardial perforation, malignant cardiac arrhythmias ,CVA, renal failure and other concomitant complications were explained in detail. Patient understood this well and consented to proceed We may keep her n.p.o. after midnight Scheduled for the catheterization tomorrow Based on the results, further recommendations will be made Thank you for the opportunity to evaluate this patient and make these recommendations PDMP PDMP Reviewed: Not Reviewed Consult Attestations Medical Necessity Statement: Patient requires continued hospital stay for close monitoring and further management Coding Level of Care Code 87621 Diagnoses Chest pain, unspecified type R07.9 Chest pain type: unspecified Elevated troponin R79.89 Benign hypertension I10 Dyslipidemia E78.5 S/P aortobifemoral bypass surgery Z95.828 Peripheral arterial disease I73.9 Type 2 diabetes mellitus without complication, without long-term current use of insulin E11.9 Diabetes mellitus termite control servicer insulin use: without jail use Diabetes mellitus complication status: without complication Smoking addiction F17.200
--- NOTE | 2025-01-10 15:44 | PM.MISC ---
Miscellaneous Note Purpose of Documentation: Overnight labs and H&P reviewed. Noted uptrending troponin's. D-dimer 0.69, age appropriate. Patient has had intermittent chest pain during the day which is now relieved by placement of a Nitropatch. Echocardiogram ordered. Cardiology service consulted. Plan is to go to [employer] tomorrow morning. N.p.o. postmidnight for the same.
[2025-01-10] MEDS: nitroglycerin 1 gm/inch oint Pkt 2 INCH TOPICAL ×2 (16:52→23:56)
[2025-01-10 17:51] LABS: Partial Thromboplastin Time 137.3 SECONDS (23.9-36.7)
--- NOTE | 2025-01-10 18:02 | USCV_ITS ---
Srinivas Riri Age: 64 Gender: F : 1960 Exam Date: 01/10/2025 20:52 Ordering Phys: Geovanna Johnson MD ([email or web address]) Technologist: ROHAN [place] [facility] [place] [facility] [place]: pad Risk Factors: Previous Vascular Surgery: RIGHT LEFT BP: 133.0 / 68.00 BP: 138.0/ 65.00 0 0 Waveform Velocity (cm/s) Velocity (cm/s) Waveform Triphasic 119.0 Iliac Prox 99.0 Triphasic Triphasic 108.0 Iliac Mid 93.0 Triphasic Triphasic 106.0 Iliac Distal 98.0 Triphasic Triphasic 116.0 SENIOR CIVIL ENGINEER 98.0 Triphasic Monophasic 87.0 SFA Prox 116.0 Triphasic Monophasic 227.0 SFA Mid 160.0 Monophasic Monophasic 49.0 SFA Dist 266.0 Monophasic Monophasic 49.0 POP 47.0 Monophasic Monophasic 54.0 END LATHE OPERATOR 42.0 Biphasic Biphasic 36.0 DPA 57.0 Biphasic 0.7 DOYLE 0.7 FINDINGS Resting DOYLE 0.7 bilaterally. Mild to moderate diffuse plaques bilaterally in the iliac and femoral arteries Elevated velocity of the level of the mid SFA on the right side and distal SFA on the left side CONCLUSIONS 1. Abnormal resting ABIs, suggesting moderate peripheral artery disease 2. Elevated velocity at the level of the mid SFA on the right and distal SFA on the left suggesting greater than 50% stenosis. 3. Mild to moderate diffuse plaque in the iliac and femoral arteries bilaterally 4. Patent iliac, femoral, popliteal and infrapopliteal vessels bilaterally Compared to the study from 05/03/2022, there is some progression of disease on the right side Dr Geovanna Johnson MD [facility] (Electronically Signed) Final Date: 11 January 2025 08:19 S
[2025-01-11] VITALS (29 sets, daily range): BP systolic 110–176; BP diastolic 64–95; PULSE 65–92; RESP 12–38; TEMP 36.6–36.8; O2SAT 88–97
[2025-01-11 00:54] LABS: Hematocrit 39.5 % (36-47); Hemoglobin 12.70 g/dL (11.27-16.99); Mean Corpuscular HGB Conc 32.2 g/dL (30-55); Mean Corpuscular Hemoglobin 30.7 pg (27-33); Mean Corpuscular Volume 95.4 fl (85-98); Nucleated Red Blood Cells % 0 %; Platelet Count 244 10^3/cmm (157-399); Red Blood Count 4.14 10^6/uL (3.85-5.65); White Blood Count 7.28 10^3/uL (3.29-11.43)
[2025-01-11 01:16] LABS: Partial Thromboplastin Time 91.2 SECONDS (23.9-36.7)
[2025-01-11] MEDS: pantoprazole 40 mg SDV IVP (04:19)
[2025-01-11] MEDS: fluticasone nasal spray 16gm Btl 1 SPRAY NASAL (04:20)
[2025-01-11 05:03] LABS: Alanine Aminotransferase 16 U/L (0-33); Albumin Level 3.6 g/dL (3.5-5.2); Alkaline Phosphatase 78 U/L (35-105); Blood Urea Nitrogen 8 mg/dL (8-23); Calcium 9.7 mg/dL (8.5-10.5); Carbon Dioxide 25 mmol/L (22-29); Chloride 105 mmol/L (98-107); Globulin 2.6 g/dL (1.3-4.6); Glucose 104 mg/dL (65-115); Osmolality Calculated 289 mOsm/kg (285-295); Sodium 140 mmol/L (136-145); Total Protein 6.2 g/dL (6.6-8.7)
[2025-01-11 05:11] LABS: Anion Gap 14.6 (5-19); Aspartate Amino Transferase 41 U/L (0-32); Potassium 4.6 mmol/L (3.5-5.1)
[2025-01-11] MEDS: HYDROcodone-acetaminophen 5-325 mg Tablet 1 TAB PO ×2 (05:15→10:47)
--- NOTE | 2025-01-11 07:01 | PC.NURSE ---
Called laboratory apparatus glass grinder regarding giving medications early. Patient is have seasonal allergies and sneezing frequently. Per mark NUNEZ okay to given benadryl early. Also clarified with labor relations or personnel negotiator its okay to hold 81 mg aspirin and given 325 once time dose instead.
[2025-01-11 08:13] LABS: Partial Thromboplastin Time 44.8 SECONDS (23.9-36.7)
--- NOTE | 2025-01-11 08:29 | P.PN_ITS ---
Subjective 2 Subjective: Patient is feeling okay with no pain this morning. No shortness of breath. Vitals are stable. Medications: Medication Review Details: Current Medications Acetaminophen (Acetaminophen 325 Mg Tablet) 650 mg PO Q6H PRN PRN Reason: Mild/Mod Pain Or Temp >/= 101 Hydrocodone Bitart/Acetaminophen (Hydrocodone-Acetaminophen 5-325 Mg Tablet) 1 tab PO Q4H PRN PRN Reason: MODERATE TO SEVERE PAIN Last Admin: 01/11/25 05:15 Dose: 1 tab Al Hydrox/Mg Hydrox/Simethicone (Sxxs-Ntk-Wffzmdhkj-Zenia 30 Ml Udc) 15 ml PO Q6H PRN PRN Reason: INDIGESTION Last Admin: 01/10/25 07:31 Dose: 15 ml Albuterol Sulfate (Albuterol 2.5 Mg/3 Ml Neb) 2.5 mg INHALATION Q6H.RESP PRN PRN Reason: WHEEZING Albuterol/Ipratropium (Ipratropium-Albuterol 3 Ml Neb) 3 ml INHALATION Q6H PRN PRN Reason: SHORTNESS OF BREATH Aspirin (Aspirin 81 Mg Ec Tablet) 81 mg PO DAILY [facility] Last Admin: 01/11/25 04:16 Dose: Not Given Atorvastatin Calcium (Atorvastatin 40 Mg Tablet) 80 mg PO BEDTIME [place] Last Admin: 01/10/25 21:10 Dose: 80 mg Diphenhydramine HCl (Diphenhydramine 25 Mg Capsule) 25 mg PO Q6H PRN PRN Reason: ITCHING Last Admin: 01/10/25 18:10 Dose: 25 mg Fluticasone Propionate (Fluticasone Nasal [place] 16gm Btl) 1 spray NASAL BID [facility] Last Admin: 01/11/25 04:20 Dose: 1 spray Heparin Sodium (Porcine) (Heparin 5,000 Unit/Ml Inj 1 Ml) 0 unit IVP PRN PRN; Protocol PRN Reason: Heparin Weight Based Protocol -Subsequent Bolus Heparin Sodium/Sodium Chloride (Heparin Drip) 25,000 unit in 500 mls @ 0 mls/hr IV CONT [place]; Protocol Last Admin: 01/11/25 05:18 Dose: Not Given Sodium Chloride (Sodium Chloride 0.9%) 1,000 mls @ 50 mls/hr IV .Q20H ONE Stop: 01/12/25 03:29 Last Admin: 01/11/25 06:17 Dose: 50 mls/hr Metoprolol Tartrate (Metoprolol Tartrate 25 Mg Tablet) 25 mg PO BID@0900,2100 [facility] Last Admin: 01/10/25 21:10 Dose: 25 mg Morphine Sulfate (Morphine 4 Mg/Ml Sdv 1 Ml) 2 mg IVP Q4H PRN PRN Reason: SEVERE PAIN Last Admin: 01/10/25 18:02 Dose: 2 mg Nitroglycerin (Nitroglycerin 1 Gm/Inch Oint Pkt) 2 inch TOPICAL Q6H [facility] Last Admin: 01/11/25 06:19 Dose: Not Given Ondansetron HCl (Ondansetron 2 Mg/Ml Sdv 2 Ml) 4 mg IVP Q8H PRN PRN Reason: vomiting, or N/V if npo Pantoprazole Sodium (Pantoprazole 40 Mg Sdv) 40 mg IVP DAILY [facility] Last Admin: 01/11/25 04:19 Dose: 40 mg Vitals/I&O/Wt Last Vital Signs Temp 97.9 F 01/11/25 07:57 Pulse 70 01/11/25 07:57 Resp 16 01/11/25 07:57 BP 149/82 01/11/25 07:57 Pulse Ox 90 01/11/25 07:57 O2 Del Method Nasal Cannula 01/11/25 03:54 O2 Flow Rate 2 01/10/25 08:40 01/10/25 01/11/25 01/11/25 22:59 06:59 14:59 Intake Total 390.1 / 1524.785 102.2 / 1626.985 Balance 390.1 / 1524.785 102.2 / 1626.985 Weight last 48 hrs Weight 174 lb 9.698 oz Weight 174 lb 9.698 oz Weight 179 lb 0.246 oz Weight 179 lb 0.246 oz Weight 175 lb Physical Exam 2 Narrative: GENERAL: The patient is alert and oriented times three. Not in any acute distress. HEENT: No significant pallor, icterus or lymphadenopathy.Oral cavity: There are no mucous membrane lesions. NECK: Trachea appears to be central. No masses noted. No JVD or thyromegaly appreciated. RESPIRATORY: Chest is symmetrical. No intercostals muscle retraction or any accessory muscle activation. There is no chest wall tenderness. Breath sounds are heard bilaterally. No rales or rhonchi heard. No evidence of any consolidation. BREASTS: Deferred. HEART: The heart sounds are normal. No S3 or S4. No significant murmurs. No pericardial rub ABDOMEN: No vessel pulsations or distention. No tenderness. No organomegaly appreciated. Bowel sounds are normally heard. : Deferred. RECTAL: Deferred. LYMPHATIC: No lymphadenopathy noted in the neck. EXTREMITIES: No edema or cyanosis. No clubbing. Peripheral pulses are weak bilaterally MUSCULOSKELETAL: No acute joint deformities or swelling SKIN: There are no significant rashes or ecchymosis NEUROPSYCHIATRIC: The patient is alert and oriented x3. Appears to be in a good mood. No tremors or rigidity noted. Data 01/11/25 00:39 01/11/25 04:34 Other Labs: Laboratory Last Values WBC 7.28 10^3/uL (3.29-11.43) 01/11/25 00:39 RBC 4.14 10^6/uL (3.85-5.65) 01/11/25 00:39 Hgb 12.70 g/dL (11.27-16.99) 01/11/25 00:39 Hct 39.5 % (36-47) 01/11/25 00:39 MCV 95.4 fl (85-98) 01/11/25 00:39 MCH 30.7 pg (27-33) 01/11/25 00:39 MCHC 32.2 g/dL (30-55) 01/11/25 00:39 RDW 14.1 % (12.1-15.1) 01/11/25 00:39 Plt Count 244 10^3/cmm (157-399) 01/11/25 00:39 MPV 8.4 fL (7.4-10.4) 01/11/25 00:39 Neut % (Auto) 63.6 % 01/11/25 00:39 Lymph % (Auto) 24.9 % 01/11/25 00:39 [place] % (Auto) 9.6 % 01/11/25 00:39 Eos % (Auto) 1.5 % 01/11/25 00:39 Baso % (Auto) 0.3 % 01/11/25 00:39 Neut # (Auto) 4.63 10^3/uL (1.8-7.7) 01/11/25 00:39 Lymph # (Auto) 1.8 10^3/uL (0.8-4.8) 01/11/25 00:39 [place] # (Auto) 0.7 10^3/uL (0.2-0.9) 01/11/25 00:39 Eos # (Auto) 0.1 10^3/uL (0.0-0.8) 01/11/25 00:39 Baso # (Auto) 0.0 10^3/uL (0.0-0.1) 01/11/25 00:39 Nucleated RBC % (auto) 0 % 01/11/25 00:39 Nucleated RBCs # 0.0 /100WBC 01/11/25 00:39 APTT 91.2 SECONDS (23.9-36.7) H 01/11/25 00:39 D-Dimer 0.69 ug/mLFEU (0-0.59) H 01/10/25 09:22 Sodium 140 mmol/L (136-145) 01/11/25 04:34 Potassium 4.6 mmol/L (3.5-5.1) 01/11/25 04:34 Chloride 105 mmol/L (98-107) 01/11/25 04:34 Carbon Dioxide 25 mmol/L (22-29) 01/11/25 04:34 Anion Gap 14.6 (5-19) 01/11/25 04:34 BUN 8 mg/dL (8-23) 01/11/25 04:34 Creatinine 0.6 mg/dL (0.5-0.9) 01/11/25 04:34 GFR Calculation 100.3 mL/min (90-130) 01/11/25 04:34 Glucose 104 mg/dL (65-115) 01/11/25 04:34 Estimat Average Glucose 134 01/10/25 05:02 Hemoglobin A1c 6.3 % (4.0-6.0) H 01/10/25 05:02 Calculated Osmolality 289 mOsm/kg (285-295) 01/11/25 04:34 Calcium 9.7 mg/dL (8.5-10.5) 01/11/25 04:34 Phosphorus 3.5 mg/dL (2.5-4.5) 01/10/25 05:02 Magnesium 2.0 mg/dL (1.7-2.3) 01/10/25 05:02 Total Bilirubin 0.3 mg/dL (0.15-1.2) 01/11/25 04:34 AST 41 U/L (0-32) H 01/11/25 04:34 ALT 16 U/L (0-33) 01/11/25 04:34 Alkaline Phosphatase 78 U/L (35-105) 01/11/25 04:34 Troponin T Baseline 21 ng/L (0-10) H 01/09/25 23:12 Troponin T 120 Minute 53.06 ng/L (0-10) H 01/10/25 01:07 Delta Troponin T 32.06 ABS# (0-10) H* 01/10/25 01:07 Troponin T Hi Sens 6Hr 45.55 ng/L (0-10) H 01/10/25 05:02 Troponin T Hi Sens 6Hr Delta 24.55 ng/L (0-12) H* 01/10/25 05:02 NT-Pro-B Natriuret Pep 67 pg/mL (0-125) 01/09/25 23:12 Total Protein 6.2 g/dL (6.6-8.7) L 01/11/25 04:34 Albumin 3.6 g/dL (3.5-5.2) 01/11/25 04:34 Globulin 2.6 g/dL (1.3-4.6) 01/11/25 04:34 Triglycerides 46 mg/dL (0-150) 01/10/25 05:02 Cholesterol 141 mg/dL (0-200) 01/10/25 05:02 LDL Cholesterol, Calc 84 mg/dL (50-129) 01/10/25 05:02 HDL Cholesterol 48 mg/dL (60-100) L 01/10/25 05:02 LDL/HDL Ratio 1.75 RATIO (0.00-3.22) 01/10/25 05:02 Cholesterol/HDL Ratio 2.94 mg/dL (0.0-4.40) 01/10/25 05:02 TSH 1.79 uIU/mL (0.27-4.20) 01/10/25 05:02 A&P Assessment and plan 1. Chest pain, unspecified type: The patient's symptoms and clinical features are consistent with acute coronary syndrome with a non-ST elevation myocardial infarction. Currently she seems to be fairly stable from a hemodynamic standpoint. Her EKG changes are nonspecific. Currently she is asymptomatic 2. Elevated troponin: As mentioned above. Patient has full clinical features of a non-ST elevation myocardial infarction. She need to be treated with subcu Lovenox, p.o. aspirin, Plavix, beta-arnoldo, statin, nitrates and other symptomatic measures. 3. Benign hypertension: The antihypertensive medications need to be optimized. I may increase the dose of the night to paste to 2 inch every 6 hours. Metoprolol 25 mg p.o. twice daily 4. Dyslipidemia: Agree with the higher dose of statin. 5. S/P aortobifemoral bypass surgery: Patient currently asymptomatic. Patient has an DOYLE of 0.7 bilateral 6. Peripheral arterial disease: Patient had an arterial Doppler examination 2 years ago and was found to have an DOYLE of 0.7 bilaterally. Seems to have progression of disease on the right side 7. Type 2 diabetes mellitus without complication, without long-term current use of insulin: Patient is on dietary modification. This may be continued. 8. Smoking addiction: Patient strongly advised to quit smoking Plan: In order to further evaluate the patient's her coronary status, she requires a cardiac catheterization. The risks and benefits of the procedure were discussed with the patient The risk of bleeding, hematoma, vascular injury, myocardial infarction, myocardial perforation, malignant cardiac arrhythmias ,CVA, renal failure and other concomitant complications were explained in detail. Patient understood this well and consented to proceed We may keep her n.p.o. after midnight Scheduled for the catheterization this morning Based on the angiogram findings, further recommendations will be made PDMP PDMP Reviewed: Not Reviewed Attestations 2 Medical Necessity Statement*: Patient requires continued hospital stay for close monitoring and further management Coding Level of Care Code 95550 Diagnoses Chest pain, unspecified type R07.9 Chest pain type: unspecified Elevated troponin R79.89 Benign hypertension I10 Dyslipidemia E78.5 S/P aortobifemoral bypass surgery Z95.828 Peripheral arterial disease I73.9 Type 2 diabetes mellitus without complication, without long-term current use of insulin E11.9 Diabetes mellitus complication status: without complication Diabetes mellitus shelter insulin use: without shelter use Smoking addiction F17.200
--- NOTE | 2025-01-11 08:30 | XACV_ITS ---
Exam Room: 2 Ht: 152 cm Wt: 79 kg BSA: 1.86 m2 Gender: Female : 1960 Any Known Allergies: Other Exam Priority: Routine Procedure(s): Procedure Description: Diagnostic procedure Procedure Description: PCI procedure Procedure Description: Left Heart Catheterization Procedure Description: Drug Eluting Coronary Stent Procedure Description: PTCA Procedure Description: Miscellaneous Procedure Description: ACT Procedure Description: Coronary Angiography Alex CHUA; Diagnostic Cath Status: Elective Diagnostic Findings * The left main is a medium caliber vessel with a minimal intimal irregularities. * The Left anterior descending artery is a medium caliber vessel which he was found to have mild to moderate diffuse calcification in the proximal segment. The mid segment of the artery has a segmental narrowing of around 50%. The distal artery was found to have a segmental narrowing of around 60 to 70%. The second diagonal branch was found to have an ostial narrowing of around 30%. The first septal dimpling machine operator is a medium caliber vessel with around 30% ostial narrowing. * The left circumflex artery is a medium caliber nondominant vessel which I was found to have around 60 to 70% segmental narrowing proximally. The mid segment of the artery was found to have 20 to 30% irregular narrowing. No other significant stenotic lesions were noted. * Right coronary artery is a medium to large caliber dominant vessel which was found to have a 40 to 50% tapering narrowing proximally towards the first RV branch. The distal artery appears to be subtotally occluded just before its bifurcation. The PLV branch was found to have mild diffuse intimal irregularities. The PLV branch appeared to be to be a much larger caliber vessel, compared to the PDA. PCI Status: Urgent PCI Indication: NSTE - ACS Interventional Findings * Proximal to Mid Right Coronary Artery: 70% stenosis treated with a MDT R FREEDOM 3.5X12 MAHESH. * Mid to distal Right Coronary Artery: 99% stenosis treated with a AB TREK 2.50X12 RX BALLOON, MDT NC EUPHORA RX [id number] BALLOON, MDT R FREEDOM 3.0X22 MAHESH, and MDT R FREEDOM 3.5X38 MAHESH. * Procedure detail: We engaged RCA with AL 0.75 guide catheter. Run-through wire was used to cross subtotally occluded mid to distal RCA. We predilated the stenosis with a 2.5 x 12 mm semicompliant balloon. This was followed by predilation with 3.5 x 20 mm NC balloon. This caused nonflow limiting dissection. With guide liner support, we delivered 3.0 x 22 mm resolute [place] drug-eluting stent in the distal RCA. This was followed by placing an overlapping 3.5x38mm Resolute freedom MAHESH in the mid to distal RCA. At proximal edge of the stent, there was suspicion for a small dissection. We placed an overlapping 3.5x12mm Resolute freedom MAHESH. Stents were post dilated with 3.5x20 NC balloon at high pressure. At this time, we performed final angiogram that showed excellent stent expansion, no residual stenosis and PATRICIA-3 flow. Guidewire and guide catheter were removed. Patient left the Animal Tech in a stable condition.. Conclusions 1. 64-year-old white female with history of hypertension, dyslipidemia, smoking abuse, peripheral artery disease, presenting with symptoms suggestive of unstable angina and an elevated troponin T consistent with a non-ST elevation myocardial infarction. Her echocardiogram was unremarkable. In view of the clinical presentation and the abnormal laboratory findings, in order to further evaluate the coronary status, myocardial catheterization was recommended. Patient underwent left heart catheterization with a left and right coronary angiogram today. The findings are as follows. 2. Minimally right distal left main. Left and descending artery was found to have a 50% lesion at the mid segment and 60 to 70% lesion in the at the distal segment. The circumflex artery was found to have around 60 to 70% lesion in the proximal segment. Right coronary artery was found to have a 40 to 50% tapering narrowing proximally towards the RV branch. Subtotal occlusion just before the bifurcation to PDA and the PLV branch. Mild diffuse disease in the other vessels. LVEDP of 41 mmHg. 3. I discussed and reviewed the cardiac catheterization data with Dr. Jiang. It was thought to be appropriate to consider PCI of the RCA lesion. May consider a Myocardial perfusion imaging to evaluate the functional significance of the LAD and the circumflex artery lesion and consider PCI at the later time. Dr. Jiang to call for further management this patient at this point. 4. S/p PCI of mid to distal RCA with 3 stents. 5. Proximal Right Coronary Artery was treated with a Drug Eluting Stent. 6. Mid Right Coronary Artery was treated with a Balloon, Balloon, Drug Eluting Stent, and Drug Eluting Stent. Recommendations * Dual antiplatelet therapy with aspirin and plavix. * High intensity statin therapy. * Outpatient cardiology follow up in 2 weeks. Interventional RX Recommendation: PCI w/o planned CABG Diagnostic RX Recommendation: PCI w/o planned CABG Anticoagulation: Heparin LV EDP: 41 mmHg Left Ventriculography Findings: * Patient was found on LVEDP of 41 mmHg. LV angiogram was not performed because of the high LVEDP and normal ejection fraction by echocardiogram. Pressures Phase:Rest AO : 131 / 69 ( 96 ) @ 8:53:00 AM 150 / 73 ( 104 ) @ 9:02:00 AM 149 / 72 ( 104 ) @ 9:02:00 AM 153 / 80 ( 112 ) @ 9:11:00 AM 170 / 79 ( 116 ) @ 9:22:00 AM 154 / 78 ( 108 ) @ 9:39:00 AM 150 / 75 ( 104 ) @ 9:44:00 AM 118 / 59 ( 83 ) @ 9:49:00 AM LV : 154 / 7 / 41 @ 9:02:00 AM 157 / 6 / 42 @ 9:02:00 AM Valves Phase:DefaultPhase AV : 7.0 @ 10:22:56 AM AV Mean Gradient: 9.0 @ 10:22:56 AM Clinical Evaluation EBL: 5mL-10mL Procedural Details Procedure Consent Obtained. Current Diagnosis : Chest Pain. Pre-Procedure Time Out. Identified patient by full name and date of as verbalized by the patient/guarantor. Does the consent match the physician's order: Yes. Accurate & Complete Informed Consent: Yes. Inpatient/Outpatient History & Physical on Chart: Yes. If H&P is completed, is and addenduem needed: No; If yes, is the addendum complete: N/A. Visualize and Verify Site with Patient/Guarantor: N/A. Relevant Radiology Images available: Yes. Pre-op teaching completed and patient verbalized understanding. The risks, benefits, and alternatives of sedation and/or procedure were discussed by physician. The patient agrees to continue. Procedure started. [facility] Clinical Fraility Score: 3: Managing Well. Animal Tech Indications: ACS > 24 hours. Chest Pain Symptom Assessment: Typical Angina Symptoms. Correct patient, site and procedure confirmed by cath team. Current diagnosis: NSTEMI. PERRLA. Strong, equal hand staffing analyst bilaterally. Lungs clear x 5 lobes. IV Site on Arrival: 18 gauge in the left anticubital. IV Fluids: 0.9% NaCl at KVO. 100 mL infused prior to lab asst. Pre Procedural Pulses: bilateral dorsalis pedis was Doppled. Pre Procedural Pulses: bilateral posterior tibial was Doppled. Pre Procedural Pulses: bilateral radial was 3+. Oxygen started at 2liters/min via nasal canula. right radial was prepped with chloroprep then draped in the usual sterile fashion. right groin was prepped with chloroprep then draped in the usual sterile fashion. Physician notified. Baseline sample Acquired. HR: 77 BPM. Physician arrived. Physician scrubbed in. Immediate Pre-Procedure Time Out. Correct Patient: Yes; Correct Procedure: Yes; Correct Site: Yes; Correct Patient Position: Yes; Correct Supplies: Yes; Dried Flammable Prep: Yes; Blood Products Available: Yes;. Lidocaine 1% infiltrated to the right radial. Arterial access obtained. A 5 albanian Cosme catheter in over wire. ACT drawn. Results 131 seconds. Therapeutic limits - pre-heparin administration 90-150 seconds and monitoring heparin during a vascular procedure >250 seconds. Multiple views taken of left coronary artery. Catheter redirected to the RCA. Catheter removed over the exchange wire. A 5 albanian JR4 catheter in over wire. Multiple views taken of right coronary artery. Dr. Jiang arrived to lab asst to review images. EDP Sample taken: LV 154/7,41; HR: 74 BPM; SpO2: 94%. Pullback taken: LV 157/6,42; AO 150/73(104); Mean: 9mmHg, Peak to Peak: 7mmHg, SEP: 19sec/min; HR: 72 BPM; SpO2: 95%. Catheter removed over the exchange wire. Patient family updated. Dr. Jiang scrubbed in to perform intervention. PCI Indication: NSTEMI. 6 albanian JR 4 guide catheter was inserted over the wire. Add inventory: Co-airline pilot flight instructor, Endoflator. Runthrough guidewire was advanced through the guide catheter to lesion in the mid RCA. Guidewire advanced across lesion. Balloon inserted to lesion in the mid RCA. Unable to cross. 2.5 X 12mm Ab trek Balloon out over the wire. 6Fr Guideliner in over the wire. Balloon inserted to lesion in the mid RCA. Unable to cross lesion, balloon out over the wire. Guideliner and wire out. Guide catheter out over the exchange wire. 6 albanian AL 0.75 guide catheter was inserted over the wire. Runthrough guidewire was advanced through the guide catheter to lesion in the mid RCA. Guidewire advanced across lesion. Balloon inserted to lesion in the mid RCA. Unable to advance 2.5 X 12mm balloon. Undeployed balloon out OTW. Balloon inserted to lesion in the mid RCA. Undeployed 2.0 X 12mm AB trek balloon out over wire. Doc extension guidewire placed on runthrough. Teleport microcatheter in over wire. Wire out. Wiggle guidewire in through teleport catheter. Doc extension wire placed on back of wiggle wire. Teleport catheter out OTW. Balloon inserted to lesion in the mid RCA. Inflation number : 1 A AB TREK 2.50X12 RX BALLOON was prepped and advanced across the Mid RCA , then inflated to 14 SHIRA for 0:13 seconds. Inflation number: 2 The AB TREK 2.50X12 RX BALLOON was reinflated across the Mid RCA, to 14 SHIRA for 0:09 seconds. Inflation number: 3 The AB TREK 2.50X12 RX BALLOON was reinflated across the Mid RCA, to 16 SHIRA for 0:17 seconds. Balloon out. Balloon inserted to lesion in the mid RCA. Inflation number : 4 A MDT NC EUPHORA RX [id number] BALLOON was prepped and advanced across the Mid RCA , then inflated to 14 SHIRA for 0:14 seconds. Inflation number: 5 The MDT NC EUPHORA RX [id number] BALLOON was reinflated across the Mid RCA, to 16 SHIRA for 0:11 seconds. Balloon out. Stent inserted to lesion in the mid RCA. Intact 3.0 X 22 mm stent out over the wire. 6fr Guideliner in over the wire. Stent inserted to lesion in the mid RCA. Inflation Number : 6 A MDT R FREEDOM 3.0X22 MAHESH -Lot Number# [id number] EXP 03-25-2025 was prepped and advanced across the Mid RCA. The stent was deployed at 12 SHIRA for 0:17 seconds. Stent balloon out over wire. Results checked. Stent inserted to lesion in the mid RCA. Inflation Number : 7 A MDT R FREEDOM 3.5X38 MAHESH -Lot Number# [id number] EXP 07-22-2027 was prepped and advanced across the Mid RCA. The stent was deployed at 12 SHIRA for 0:17 seconds. Stent balloon out over wire. Results checked. Balloon inserted to lesion in the mid RCA. Inflation number: 8 The MDT NC EUPHORA RX [id number] BALLOON was reinflated across the Mid RCA, to 18 SHIRA for 0:10 seconds. Inflation number: 9 The MDT NC EUPHORA RX [id number] BALLOON was reinflated across the Mid RCA, to 18 SHIRA for 0:07 seconds. Inflation number: 10 The MDT NC EUPHORA RX [id number] BALLOON was reinflated across the Mid RCA, to 20 SHIRA for 0:10 seconds. Results checked. Balloon out. Stent inserted to lesion in the mid RCA. Inflation Number : 1 A MDT R FREEDOM 3.5X12 MAHESH -Lot Number# [id number] EXP 05-03-2027 was prepped and advanced across the Prox RCA. The stent was deployed at 16 SHIRA for 0:12 seconds. Inflation number: 2 The stent balloon was then re-inflated across the Prox RCA to 14 SHIRA for 0:09 seconds. Balloon out. Results checked. Wire out. Results checked. ACT drawn. Results out of range high results. Therapeutic limits - pre-heparin administration 90-150 seconds and monitoring heparin during a vascular procedure >250 seconds. Guide catheter out OTW. Post Procedure: Pulses reassessed and unchanged. PERRLA. Strong, equal hand staffing analyst bilaterally. No VTE prophylaxis required. Medication's Wasted: Lidocaine 1% = 18 mL. Medication's Wasted: Nitro = 49.8 mg. Medication's Wasted: Other = Fentanyl 25mcg. Medication's Wasted: Heparin = 3000 unit mL. Total IV fluids: 100 mL. Post-op diagnosis: Critical mid RCA stenosis. Status post PCI placement of 3 MAHESH. Complications: Dissection of mid and proximal RCA. Estimated blood loss: 5mL-10mL. Responsiveness - Normal response to verbal stimuli; alert and oriented, PERRLA. Airway - Unaffected, no intervention required; spontaneous ventilation. Circulation: W/N/L, pulses unchanged. Nausea/Vomiting: No. ACT drawn. Results 269 seconds. Therapeutic limits - pre-heparin administration 90-150 seconds and monitoring heparin during a vascular procedure >250 seconds. A TR Band was successful obtaining hemostatsis at the Right Radial artery insertion site. Procedure completed. Patient transferred by bed to 1st floor. Vital chart was stopped. Access Site Site: Right Radial artery Sheath Size: 6 Fr Hemostasis Method: TR Band Hemostasis Success: Successful Procedure Medications Start: 8:37 AM Stop: 8:37 AM Medication: Versed Amount: 1 mg Route: I.V. Start: 8:37 AM Stop: 8:37 AM Medication: Fentanyl Amount: 25 mcg Route: I.V. Start: 8:49 AM Stop: 8:49 AM Medication: Verapamil Amount: 5 mg Route: I.A. Start: 8:50 AM Stop: 8:50 AM Medication: Nitrogylcerin Amount: 200 mcg Route: I.A. Start: 8:50 AM Stop: 8:50 AM Medication: Versed Amount: 1 mg Route: I.V. Start: 8:57 AM Stop: 8:57 AM Medication: Heparin Amount: 4000 units Route: I.V. Start: 9:10 AM Stop: 9:10 AM Medication: Heparin Amount: 2000 units Route: I.V. Start: 9:33 AM Stop: 9:33 AM Medication: Heparin Amount: 1000 units Route: I.V. Start: 9:35 AM Stop: 9:35 AM Medication: Versed Amount: 1 mg Route: I.V. Start: 9:35 AM Stop: 9:35 AM Medication: Fentanyl Amount: 25 mcg Route: I.V. Start: 9:44 AM Stop: 9:44 AM Medication: Versed Amount: 1 mg Route: I.V. Start: 9:44 AM Stop: 9:44 AM Medication: Fentanyl Amount: 25 mcg Route: I.V. Start: 10:10 AM Stop: 10:10 AM Medication: Plavix Amount: 600 mg Route: P.O. Start: 10:16 AM Stop: 10:16 AM Medication: Heparin Amount: 1000 units Route: I.V. I, the attending physician, have reviewed and verified all procedure medications. Yes, all medications given per verbal order History/Risk Factors Hypertension: Yes Dyslipidemia: Yes Peripheral Arterial Disease (PAD): Yes Myocardial Infarction ([place]): No Obesity: No Renal Disease: No Tobacco Use: Current/Recent(w/in 1 year) Prior Interventions PCI: No CABG: No Valve Surgery: No Report Signatures Interventional Workflow Finalized by Blaise Jiang MD on 01/18/2025 09:34 AM Diagnostic Workflow Finalized by Dr Geovanna Johnson MD [facility] on 01/11/2025 11:24 AM
--- NOTE | 2025-01-11 08:39 | W.PM.OPSUD ---
Surgery/Procedure H&P Update DATE OF PROCEDURE: January 11, 2025 DATE H&P PERFORMED: 01/10/25 H&P UPDATE INFORMATION: I have reviewed H&P completed within last 30 days, I have examined patient prior to procedure and No changes to prior documentation PREOP DIAGNOSIS: ASHD PRIMARY INDICATION FOR PROCEDURE: Patient with multiple risk factors for coronary disease, NSTEMI PLANNED PROCEDURE: Operation Date: 01/11/25 06:00 Proposed Procedures p Cardiac Catheterization(Left) - Geovanna Johnson MD PATIENT REASSESSED PRIOR TO SEDATION, WITH NO CHANGE NOTED: Yes PHYSICAL EXAM: alert, oriented x 3 and clear to auscultation bilaterally AIRWAY EVAL/ANESTHESIA PLAN: normal airway, see other exam findings, ASA III, Monitored Anesthesia, Local Anesthesia, Risks, benefits & alternatives of sedation and/or procedure discussed and Patient agrees to continue as planned
--- NOTE | 2025-01-11 08:59 | PC.CHAP ---
Pastoral Care Encounter/Spiritual Assessment Type of Contact [] Declined gold letterer visit [] Patient/Family/Request visit [] Outpatient visit [] Follow-up visit [] Physician referral [] Code/Alert [x] Routine visit [] Staff referral [] Actively dying [] Patient sleeping [] Family support [] [x] Out of room [] Palliative care [] [] Receiving care in room [] Pre-surgical visit [] Trauma [] Long length of stay [] ICU visit [] Other: Relational/Emotional Strength [] Patient feels connected with others/family/visitors/staff [] Distress [] Loneliness/isolation [] Abandonment Spirituality of Patient [] Person of [place] [] Attends Pentecostalism of their [place] [] Believes in Prayer [] Reads Bible or Yazidism materials [] There are Spiritual issues to be addressed Medical Claims Examiner Interventions [x] Prayer [] Active listening [] Non-anxious presence [] Spiritual/emotional support [] Crisis/trauma care [] Spiritual counseling [] Bereavement support [] Provided bereavement packet [] Provided Bible/devotional materials [] Provided toy/stuffed animal, coloring book to patient or family member [] Provided Communion [] Anointing/[place] [] Salvation [] Completed spiritual assessment [] Other: Impact on Illness or Injury [] Angry [] Fearful [] Anxious [] Often cries [] Exhaustion [] Unable to work [] Unable to attend mosque [] Unable to walk/stand [] Unable to read [] Unable to drive [] Unable to eat/drink [] Unable to sleep [] Unable to be with family [] Patient intubated [] Other: Summary Time spent with patient
--- NOTE | 2025-01-11 09:09 | PM.OP ---
Operative Report Date of procedure: January 11, 2025 Surgeon: Geovanna Johnson MD Procedure: This patient underwent a left heart catheterization with a left and right coronary angiogram today. He was found to have a subtotal occlusion of the distal RCA. There was around 60 to 70% lesion in the proximal circumflex artery. The distal left anterior descending artery also was found to have around 60 to 70% lesion. LVEDP was 41 mmHg. No LV gram was done. Based on the above angiogram findings, it was thought to be appropriate to consider PCI of the RCA lesion. May consider stress testing later on to evaluate the functional significance of the circumflex and the LAD lesion and then decide on possible PCI. Dr. Jiang took over further management of this patient at this point. Patient's son was informed about these findings
--- NOTE | 2025-01-11 10:15 | PM.PROC ---
Procedure Note: Date of procedure: 01/11/25 Pre-procedure diagnosis: NSTEMI Post-procedure diagnosis: other (Subtotal occlusion of mid to distal RCA with severe stenosis in mid RCA) Procedure: Status post successful revascularization of mid to distal RCA with 3 stents. Dual antiplatelet therapy with aspirin and Plavix. Outpatient stress test to assess ischemia in those territories Performing Provider: Blaise Jiang Complications: None Condition: stable Disposition: floor Coding Level of Care Code Acute Code for Carmelina Tran
--- NOTE | 2025-01-11 10:41 | PC.NURSE ---
Patient received from lab systems analyst s/p LHC via right radial artery. TR band in place. No s/s of bleeding or hematoma formation observed. Instructed patient on site care. Patient verbalized understanding but will continue to reinforce teaching due to continued drowsiness.
--- NOTE | 2025-01-11 13:16 | PM.PN ---
Subjective Subjective: Patient seen this morning on the medical floor. She is admitted due to complaints of chest pain, and found to have suspected NSTEMI. She had a PCI this morning, where the glass lined tank repairer found apparent subtotal occlusion of the mid to distal RCA with severe stenosis in the mid RCA. She had a successful revascularization with 3 stents. Thereafter, she was seen back today stating need for close observation. Currently, she reports feeling much better. She had no new complaints. Vitals/I&O/Wt Last Vital Signs Temp 97.9 F 01/11/25 07:57 Pulse 75 01/11/25 12:30 Resp 18 01/11/25 12:30 BP 155/90 01/11/25 12:15 Pulse Ox 95 01/11/25 12:30 O2 Del Method Nasal Cannula 01/11/25 11:20 O2 Flow Rate 3 01/11/25 11:20 01/10/25 01/11/25 01/11/25 22:59 06:59 14:59 Intake Total 390.1 / 1524.785 102.2 / 1626.985 74.617 / 74.617 Balance 390.1 / 1524.785 102.2 / 1626.985 74.617 / 74.617 Weight last 48 hrs Weight 79.2 kg Weight 79.2 kg Weight 81.2 kg Weight 81.2 kg Weight 79.379 kg Physical Exam Const: COMMON NORMALS: no acute distress, patient oriented x3, alert and well nourished Cardio: COMMON NORMALS: regular rate, regular rhythm, S1 normal heart sound present, S2 normal heart sound present and No murmurs present (Cardio) RATE: regular rate RHYTHM: regular rhythm HEART SOUNDS: S1 normal heart sound present and S2 normal heart sound present GI: COMMON NORMALS: Normal to inspection, nondistended, normoactive bowel sounds present Neuro: COMMON NORMALS: patient oriented x3 SENSORIUM/ORIENTATION: Yes alert Psych: APPEARANCE: Yes grossly normal ATTITUDE: Yes calm Data 01/11/25 00:39 01/11/25 04:34 A&P Assessment and plan 1. Status post primary angioplasty with coronary stent: 2. Acute coronary syndrome: 3. Non-ST elevated myocardial infarction (non-STEMI): 4. Type 2 diabetes mellitus without complication, without long-term current use of insulin: 5. Peripheral arterial disease: 6. Benign hypertension: Plan: Currently stable patient. Tolerated PCI & stent placement procedure very well. Stable on ongoing dual antiplatelet therapy by the embedded software developer; continue with these at this time. Consider further control of blood sugar with basal-prandial insulin if neeeded. Further plans to be adjusted as clinically evolves. Anticipate discharge tomorrow. PDMP PDMP Reviewed: Not Reviewed Attestations Medical Necessity Statement*: See HPI and treatment plan above. Coding Level of Care Code 38672 Diagnoses Status post primary angioplasty with coronary stent Z95.5 Acute coronary syndrome I24.9 Non-ST elevated myocardial infarction (non-STEMI) I21.4 Type 2 diabetes mellitus without complication, without long-term current use of insulin E11.9 Diabetes mellitus superintendent terminal insulin use: without superintendent terminal use Diabetes mellitus complication status: without complication Peripheral arterial disease I73.9 Benign hypertension I10
--- NOTE | 2025-01-11 13:39 | PC.NURSE ---
BP cuff removed by patient. Reinforced education regarding need to continued BP and site care. Patient verbalized understanding. Replaced cuff.
--- NOTE | 2025-01-11 15:14 | PC.NURSE ---
Initiated TR band removal at 1130 removing 1-2ml of air every 15-20min until all air removed at this time. Removed band, No s/s of bleeding or hematoma formation observed. Covered site with 2x2 and coban. Patient denies pain at this time. No distress observed. Instructed patient on site care with restrictions. Patient verbalized complete understanding.
[2025-01-12] VITALS: BP 102/70; PULSE 83; RESP 20; O2SAT 91
[2025-01-12 04:00] VITALS: BP 123/71; PULSE 96; RESP 24; TEMP 36.6; O2SAT 92
[2025-01-12] MEDS: pantoprazole 40 mg SDV IVP (05:49)
[2025-01-12] MEDS: fluticasone nasal spray 16gm Btl 1 SPRAY NASAL (05:50)
[2025-01-12 05:55] LABS: Hematocrit 42.3 % (36-47); Hemoglobin 13.50 g/dL (11.27-16.99); Mean Corpuscular HGB Conc 31.9 g/dL (30-55); Mean Corpuscular Hemoglobin 30.8 pg (27-33); Mean Corpuscular Volume 96.6 fl (85-98); Nucleated Red Blood Cells % 0 %; Platelet Count 234 10^3/cmm (157-399); Red Blood Count 4.38 10^6/uL (3.85-5.65); White Blood Count 7.19 10^3/uL (3.29-11.43)
[2025-01-12 06:17] LABS: Anion Gap 14.0 (5-19); Blood Urea Nitrogen 11 mg/dL (8-23); Calcium 9.6 mg/dL (8.5-10.5); Carbon Dioxide 27 mmol/L (22-29); Chloride 106 mmol/L (98-107); Glucose 142 mg/dL (65-115); Osmolality Calculated 298 mOsm/kg (285-295); Potassium 4.0 mmol/L (3.5-5.1); Sodium 143 mmol/L (136-145)
[2025-01-12] MEDS: alum-mag-hydroxide-sime 30 mL UDC 15 ML PO (06:46)
[2025-01-12 07:23] VITALS: BP 121/72; PULSE 84; RESP 16; TEMP 36.4; O2SAT 96
[2025-01-12 07:26] VITALS: PULSE 85; RESP 16; O2SAT 94
--- NOTE | 2025-01-12 09:58 | PC.CHAP ---
Pastoral Care Encounter/Spiritual Assessment Type of Contact [] Declined case therapist visit [] Patient/Family/Request visit [] Outpatient visit [] Follow-up visit [] Physician referral [] Code/Alert [x] Routine visit [] Staff referral [] Actively dying [] Patient sleeping [] Family support [] [] Out of room [] Palliative care [] [] Receiving care in room [] Pre-surgical visit [] Trauma [] Long length of stay [] ICU visit [] Other: Relational/Emotional Strength [x] Patient feels connected with others/family/visitors/staff [] Distress [] Loneliness/isolation [] Abandonment Spirituality of Patient [x] Person of [place] [x] Attends Taoism of their [place] [x] Believes in Prayer [] Reads Bible or Worship materials [] There are Spiritual issues to be addressed Middleware Architect Interventions [x] Prayer [x] Active listening [] Non-anxious presence [x] Spiritual/emotional support [] Crisis/trauma care [] Spiritual counseling [] Bereavement support [] Provided bereavement packet [] Provided Bible/devotional materials [] Provided toy/stuffed animal, coloring book to patient or family member [] Provided Communion [] Anointing/[place] [] Salvation [x] Completed spiritual assessment [] Other: Impact on Illness or Injury [] Angry [] Fearful [] Anxious [] Often cries [] Exhaustion [] Unable to work [] Unable to attend sikh [] Unable to walk/stand [] Unable to read [] Unable to drive [] Unable to eat/drink [] Unable to sleep [] Unable to be with family [] Patient intubated [] Other: Summary Time spent with patient 5 min
--- NOTE | 2025-01-12 10:45 | P.DS_ITS ---
Discharge Providers Date of Admission: 01/10/25 02:09 Date of Discharge: January 12, 2025 Attending Provider at Admission: Isis Hart MD Attending Provider at Discharge: Attlia Faith MD Primary Care Provider: AQUILES Dumont Diagnoses at Discharge Discharge Diagnosis 1. Status post primary angioplasty with coronary stent: 2. Acute coronary syndrome: 3. Non-ST elevated myocardial infarction (non-STEMI): 4. Type 2 diabetes mellitus without complication, without long-term current use of insulin: 5. Peripheral arterial disease: 6. Benign hypertension: Reason for Visit Reason for Visit: CP Brief History: Patient presented with apparent NSTEMI. Cardiology was consulted, and patient had a successful revascularization of mid to distal RCA with 3 stents.. Hospital Course Hospital Course Patient was further observed on telemetry, while other concomitant symptoms were treated empirically. Rectal could be thought chronic medical problems were treated with home medications, as adjusted. Patient continued to do well, and remained stable till this morning. Consequently, cardiology recommended patient to be discharged home on oral dusl antiplatelets. Patient therefore discharged. See my discharge orders for more details. Physical Exam Narrative: General: Awake alert obvious distress. Other physical findings/abnormalities. Discharge Data Studies Completed and Pending Completed Studies During Hospitalization Category Date Time Status XR chest 1V portable [id number] Stat Exams 01/09/25 22:48 Completed CV. echo complete* [id number] Routine Ultrasound 01/10/25 12:12 Completed US arterial duplex lower extremity bilat [CV arterial Ultrasound 01/10/25 18:02 [place] [id number]] Routine Pending at discharge Category Date Time Status TECHNICAL SPECIALIST CYTOLOGY request for service Routine Exams 01/11/25 08:30 Taken Platelet Count Q2D Lab 01/14/25 04:00 Ordered Radiology Impressions Chest X-Ray 01/09/25 22:48 IMPRESSION: No acute findings. Laboratory Results All Labs last 24 hrs except CBC/BMP 01/12/25 05:23 RBC 4.38 MCV 96.6 MCH 30.8 MCHC 31.9 RDW 14.1 MPV 8.7 Neut % (Auto) 72.9 Lymph % (Auto) 17.2 [place] % (Auto) 8.2 Eos % (Auto) 1.3 Baso % (Auto) 0.1 Neut # (Auto) 5.24 Lymph # (Auto) 1.2 [place] # (Auto) 0.6 Eos # (Auto) 0.1 Baso # (Auto) 0.0 Nucleated RBC % (auto) 0 Nucleated RBCs # 0.0 GFR Calculation 100.3 Calculated Osmolality 298 H Calcium 9.6 Vitals Last Vital Signs Temp 97.6 F 01/12/25 07:23 Pulse 85 01/12/25 07:26 Resp 16 01/12/25 07:26 BP 121/72 01/12/25 07:23 Pulse Ox 94 01/12/25 07:26 O2 Del Method Nasal Cannula 01/12/25 07:26 O2 Flow Rate 2 01/12/25 07:26 Discharge Plan Discharge Patient Disposition: Home Condition: Good Prescriptions: New atorvastatin 40 mg Tablet 80 mg PO BEDTIME Qty: 30 3RF clopidogrel 75 mg Tablet 75 mg PO DAILY Qty: 30 3RF Continued metoprolol tartrate 50 mg tablet 50 mg PO BID cilostazol 100 mg tablet 100 mg PO BID calcium 26-vit D3-magnesium 15 167 mg calcium- 1.67 mcg-83 mg capsule 1 cap PO DAILY aspirin 81 mg tablet 81 mg PO DAILY calcium 600 mg Capsule 600 mg PO DIRECTED Patient Comments: Per patient she takes twice a week. cholecalciferol (vitamin D3) [Vitamin D3] 50 mcg (2,000 unit) Tablet 50 mcg PO DAILY cyclobenzaprine 10 mg tablet 10 mg PO PRN Patient Comments: patient just takes when needed Discontinued simvastatin 10 mg tablet 10 mg PO DAILY [employer] Supervisor OK for DC: Cardiology Discharge Order = DC NOW: Discharge Order (Routine); Ordered 01/12/25 Ordered By: Attila Faith Referrals: Arturo Ray MD [Physician, Cardiology] - 01/27/25 8:45 am Discharge Diet: Regular and Low Cholesterol Discharge Activity: Resume usual activity and Increase activity as tolerated Patient Instructions: Atorvastatin (By mouth) (Lipitor, Atorvaliq), Clopidogrel (By mouth) (Plavix), Coronary Angioplasty (DC), Opioid Safety, Post Angiogram Home Care Instructions, Patient Portal & Yue Instructions Discharge Attestations Time Spent in Discharge Care*: less than 30 min Quality Metrics Clinical Quality Measures [ No reported AMI, CVA or VTE this stay] Coding Level of Care Code 92186 Diagnoses Status post primary angioplasty with coronary stent Z95.5 Acute coronary syndrome I24.9 Non-ST elevated myocardial infarction (non-STEMI) I21.4 Type 2 diabetes mellitus without complication, without long-term current use of insulin E11.9 Diabetes mellitus complication status: without complication Diabetes mellitus intermediate teacher insulin use: without intermediate teacher use Peripheral arterial disease I73.9 Benign hypertension I10
--- NOTE | 2025-01-12 11:25 | PM.PN ---
Vitals/I&O/Wt Last Vital Signs Temp 97.6 F 01/12/25 07:23 Pulse 85 01/12/25 07:26 Resp 16 01/12/25 07:26 BP 121/72 01/12/25 07:23 Pulse Ox 94 01/12/25 07:26 O2 Del Method Nasal Cannula 01/12/25 07:26 O2 Flow Rate 2 01/12/25 07:26 01/11/25 01/12/25 01/12/25 22:59 06:59 14:59 Intake Total 1450 / 2124.617 240 / 2124.617 360 / 360 Balance 1450 / 2124.617 240 / 2124.617 360 / 360 Weight last 48 hrs Weight 178 lb 2.136 oz Weight 174 lb 9.698 oz Weight 174 lb 9.698 oz Data 01/12/25 05:23 01/12/25 05:23 A&P PDMP PDMP Reviewed: Not Reviewed Coding Level of Care Code Acute Code for Chg Marc
--- NOTE | 2025-01-12 12:54 | PC.NURSE ---
Patient discharged to home. Instruction provided regarding follow up needs, new medications with changes and site care. Patient verbalized complete understanding. Right wrist remains c,d,i without s/s of bleeding or hematoma noted. Patient denies pain to site. patient taken by wheelchair to private vehicle with son by side.
[2025-01-12 12:56] VITALS: BP 121/72; PULSE 83; RESP 18; O2SAT 91
== END 2025-01-12 11:45 | disposition home or self-care (01) | DRG 322 ==
LOC: ER 01-10 02:34 → CSU 01-10 02:36
PROVIDERS: Internal Medicine; Internal Medicine Cardiovascular Disease; Student in an Organized Health Care Education/Training Program; Admitting Provider Student in an Organized Health Care Education/Training Program; Emergency Provider Emergency Medicine; PCP Nurse Practitioner Family; Visit Provider Family Medicine
PROC: 027036Z Dilation of Coronary Artery, One Artery with Three Drug-eluting Intraluminal Devices, Percutaneous Approach (ICD-10-PCS; principal; 2025-01-11 06:00)
DX: I21.4 Non-ST elevation (NSTEMI) myocardial infarction (principal); I47.10 Supraventricular tachycardia, unspecified; I24.9 Acute ischemic heart disease, unspecified; E11.51 Type 2 diabetes mellitus with diabetic peripheral angiopathy without gangrene; I10 Essential (primary) hypertension; J44.9 Chronic obstructive pulmonary disease, unspecified; F17.210 Nicotine dependence, cigarettes, uncomplicated; G56.21 Lesion of ulnar nerve, right upper limb; Z79.4 Long term (current) use of insulin; Z79.02 Long term (current) use of antithrombotics/antiplatelets; Z79.82 Long term (current) use of aspirin; Z98.890 Other specified postprocedural states
CPT/HCPCS: 36415; 71045; 80048; 80053; 80061; 83036; 83735; 83880; 84100; 84443; 84484; 85025; 85347; 85378; 85730; 93005; 93306; 93458; 93925; 99152; 99153; 99285; 99291; C1725; C1769; C1874; C1887; C1894; C9600; J1644; J2250; J2270; J2470; J3010; J3490; J7030; J9999; Q0163; Q9967

== ENCOUNTER → 2025-01-27 08:28 | Outpatient (BNVA) | payer MEDICARE, MEDICAID, SELFPAY | PROVIDERS: PCP Nurse Practitioner Family; Visit Provider Internal Medicine Cardiovascular Disease | DX: I73.9 Peripheral vascular disease, unspecified (principal); E78.5 Hyperlipidemia, unspecified; I10 Essential (primary) hypertension; Z95.828 Presence of other vascular implants and grafts; Z95.5 Presence of coronary angioplasty implant and graft; F17.200 Nicotine dependence, unspecified, uncomplicated | CPT/HCPCS: 99214 ==